=== PATIENT | female | born 1945 | race Caucasian/White ===

== ENCOUNTER → 2018-05-14 | Outpatient (CLI) | payer MEDICARE ==
--- NOTE | 2018-05-14 14:56 | US ---
EXAMINATION TYPE: US kidneys/renal and bladder DATE OF EXAM: 05/14/2018 COMPARISON: 03/06/2014 CLINICAL HISTORY: 72-year-old female R31.9 HEMATURIA,R10.9 FLANK PAIN. Hx of UTI, hx of surgical marjorie stephania of stones x >20 years ago TECHNIQUE: Multiple sonographic images of the kidneys and bladder are obtained. FINDINGS: EXAM MEASUREMENTS: Right Kidney: 10.3 x 4.0 x 4.3 cm Left Kidney: 10.3 x 3.1 x 5.2 cm Right Kidney: Round upper pole lesion partially cystic measuring 2.0 x 1.6 x 1.6 cm . On 03/06/2014 , a upper pole lesion measured 1.3 x 1.1 x 1.0 cm. No hydronephrosis. Left Kidney: No hydronephrosis. Bladder: Underdistention limits its evaluation. Left jet seen IMPRESSION: 1. No hydronephrosis. 2. Indeterminate round, 2 cm lesion in the upper pole of the right kidney could be partially cystic. Complicated or complex cyst are considerations. This has increased in size from 1.3 cm in 2014. The r elative indolent growth suggests a benign etiology but given the growth, additional follow-up is patrick mmended. Kidney MRI can provide more definitive assessment. Otherwise, 3-6 month follow-up ultrasound is recommended.
--- NOTE | 2018-05-14 15:44 | XR ---
EXAMINATION TYPE: XR KUB DATE OF EXAM: 05/14/2018 3:39 PM CLINICAL HISTORY: Right-sided flank pain. TECHNIQUE: Two supine KUB images of the abdomen are obtained. COMPARISON: Same day renal ultrasound. FINDINGS: Scattered gas is seen in non-distended small and large bowel loops . Scattered pelvic phleb oliths are present bilaterally. There is severe narrowing with sclerosis and spurring right L4-L5 lev el. Visualized lung bases are clear. IMPRESSION: Overall nonobstructive bowel gas pattern. No definite nephrolithiasis.
[2018-05-14 16:19] LABS: Amorphous Sediment,Urine Occasional /hpf; Appearance,Urine Cloudy (Clear); Bilirubin,Urine 2+ (Negative); Blood,Urine Trace (Negative); Color,Urine Dark Brown; Glucose,Urine (UA) Negative (Negative); Hyaline Casts,Urine 3 /lpf (0-2); Ketones,Urine Negative (Negative); Leukocyte Esterase,Urine Moderate (Negative); Mucus,Urine Few /hpf; Nitrite,Urine Negative (Negative); Protein,Urine 1+ (Negative); RBC,Urine 4 /hpf (0-5); Specific Gravity,Urine 1.022 (1.001-1.035); Squamous Epithelial Cell,Urine 15 /hpf (0-4); WBC,Urine 17 /hpf (0-5)
[2018-05-14 17:10] LABS: Albumin 3.4 g/dL (3.5-5.0); Potassium 4.3 mmol/L (3.5-5.1); Total Bilirubin 3.1 mg/dL (0.2-1.3); Total Protein 6.5 g/dL (6.3-8.2)
== END | disposition home or self-care (01) ==
LOC: RADUSWWP 13:58
PROVIDERS: ATTEND Internal Medicine
DX: N28.9 Disorder of kidney and ureter, unspecified (principal); R31.9 Hematuria, unspecified; R10.9 Unspecified abdominal pain; Z88.0 Allergy status to penicillin; Z88.1 Allergy status to other antibiotic agents; Z88.2 Allergy status to sulfonamides; Z91.048 Other nonmedicinal substance allergy status
CPT/HCPCS: 36415; 74018; 76770; 80053; 81001

== ENCOUNTER 2018-05-17 13:15 | Observation (INO) | payer MEDICARE ==
[2018-05-17 16:12] LABS: Appearance,Urine Cloudy (Clear); Bacteria,Urine Rare /hpf; Bilirubin,Urine Negative (Negative); Blood,Urine Moderate (Negative); Color,Urine Dark Yellow; Glucose,Urine (UA) Negative (Negative); Ketones,Urine Negative (Negative); Leukocyte Esterase,Urine Large (Negative); Mucus,Urine Rare /hpf; Nitrite,Urine Negative (Negative); PH, Urine 5.5 (5.0-8.0); Protein,Urine 1+ (Negative); RBC,Urine 10 /hpf (0-5); Specific Gravity,Urine 1.024 (1.001-1.035); Squamous Epithelial Cell,Urine 10 /hpf (0-4)
--- NOTE | 2018-05-17 17:23 | ED ---
General Adult HPI <Kory Catalan - Last Filed: 05/17/18 19:24> - General Source: patient Mode of arrival: ambulatory Limitations: no limitations <Sheba Corley - Last Filed: 05/17/18 20:02> - General Chief complaint: Recheck/Abnormal Lab/Rx Stated complaint: fever, sweating Time Seen by Provider: 05/17/18 15:23 - History of Present Illness Initial comments: 72-year-old female with past medical history of hyperlipidemia, hypertension and fiber mild to presenting today for chief complaint of sent by primary provider. Patient states she had elevated liver enzymes and was told by her primary care provider to present for evaluation. Patient does admit to having right upper quadrant abdominal pain, chills and feels as though she has a fever. Upon arrival patient is afebrile. Patient states she's had decreased appetite, denies any severe abdominal pain, diarrhea, constipation, vomiting, hematemesis, melena or hematochezia. Patient denies any chest pain dyspnea disposition. Patient denies any lower extremity edema. Patient states she had laboratory studies performed at her primary care provider Dr. Mace which revealed significant elevation of the liver enzymes as well alk phos and was sent to the ER for admission and further evaluation. Patient denies any recent back pain, numbness or tingling, dysuria, frequency or hesitancy, headaches or visual changes, or any other complaints. Upon arrival pt VS stable she appears nontoxic. (Sheba Corley) - Related Data Home Medications Medication Instructions Recorded Confirmed Cholecalciferol (Vitamin D3) 2,000 unit PO DAILY 05/17/18 05/17/18 [Vitamin D3] Escitalopram [Lexapro] 20 mg PO HS 05/17/18 05/17/18 Gabapentin [Neurontin] 400 mg PO BID 05/17/18 05/17/18 Losartan [Cozaar] 50 mg PO HS 05/17/18 05/17/18 Multivitamins, Thera [Multivitamin 1 tab PO DAILY 05/17/18 05/17/18 (formulary)] Omeprazole Magnesium [PriLOSEC OTC] 20 mg PO HS 05/17/18 05/17/18 Simvastatin [Zocor] 20 mg PO HS 05/17/18 05/17/18 Triamcinolone Acetonide [Nasacort] 1 spray EA NOSTRIL BID PRN 05/17/18 05/17/18 Allergies Allergy/AdvReac Type Severity Reaction Status Date / Time adhesive tape Allergy Rash/Hives Verified 05/17/18 15:29 erythromycin base Allergy Nausea & Verified 05/17/18 15:29 Vomiting & Diarrhea Iodinated Contrast- Oral and Allergy Rash/Hives Verified 05/17/18 15:29 IV Dye Penicillins Allergy Rash/Hives Verified 05/17/18 15:29 Sulfa (Sulfonamide Allergy Rash/Hives Verified 05/17/18 15:29 Antibiotics) ENVIRONMENTAL Allergy Dyspnea Uncoded 05/17/18 15:29 Review of Systems ROS Other: All systems not noted in ROS Statement are negative. <Kory Catalan - Last Filed: 05/17/18 19:24> ROS Other: All systems not noted in ROS Statement are negative. <Sheba Corley - Last Filed: 05/17/18 20:02> ROS Statement: Those systems with pertinent positive or pertinent negative responses have been documented in the HPI. Past Medical History Past Medical History: Fibromyalgia, Hyperlipidemia, Hypertension Additional Past Medical History / Comment(s): seasonal allergies, History of Any Multi-Drug Resistant Organisms: None Reported Past Surgical History: Appendectomy, Back Surgery, Hysterectomy, Tonsillectomy Additional Past Surgical History / Comment(s): parathyroid removed, cataracts Past Psychological History: No Psychological Hx Reported Smoking Status: Never smoker Past Alcohol Use History: None Reported Past Drug Use History: None Reported <Sheba Corley - Last Filed: 05/17/18 20:02> General Exam <Kory Catalan - Last Filed: 05/17/18 19:24> Limitations: no limitations <Sheba Corley - Last Filed: 05/17/18 20:02> - General Exam Comments Initial Comments: General: The patient is awake and alert, in no distress, and does not appear acutely ill. Eye: Pupils are equal, round and reactive to light, extra-ocular movements are intact. No nystagmus. There is normal conjunctiva bilaterally. No signs of icterus. Ears, nose, mouth and throat: There are moist mucous membranes and no oral lesions. Neck: The neck is supple, there is no tenderness or JVD. Cardiovascular: There is a regular rate and rhythm. No murmur, rub or gallop is appreciated. Respiratory: Lungs are clear to auscultation, respirations are non-labored, breath sounds are equal. No wheezes, stridor, rales, or rhonchi. Gastrointestinal: No noted diaphoresis, jaundice, pallor, protecting postures or squirming. Symmetrical pigmentation of abdomen without signs of inflammation. Umbilicus mildline, inverted without swelling. No dilated veins. Abdomen contour obese, no noted abdominal distention. No visible masses. No peristalsis, aortic pulsations, or ventral hernia. Bowel sounds audible in all 4 quadrants, unremarkable. No friction rubs or venous hums. No epigastic, hepatic or abdominal bruits. Mild tenderness to palpation of the RUQ remaining abomen nontender to deep or light palpation. Liver edge, not palpable. Spleen edge, right and left kidney not palpable. Superior bladder margin non-tender. Special Testing: Negative [place], [place], McBurney, Sugar, cutaneous hyperesthesia. Iliopsoas and obturator tests negative bilaterally. Negative Heel Jar test/ tu sign. No CVA tenderness. Digital rectal exam deferred. Negative michaud turners or cullens sign Musculoskeletal: Normal ROM, no tenderness. Strength 5/5. Sensation intact. Pulses equal bilaterally 2+. Neurological: A&O x 3. CN II-XII intact, There are no obvious motor or sensory deficits. Coordination appears grossly intact. Speech is normal. Skin: Skin is warm and dry and no rashes or lesions are noted. No LE edema. Psychiatric: Cooperative, appropriate mood & affect, normal judgment. (Sheba Corley) Vital Signs 05/17/18 05/17/18 05/17/18 13:27 16:30 18:48 Temperature 97.6 F 98.2 F 97.1 F L Pulse Rate 85 74 74 Respiratory 18 18 18 Rate Blood Pressure 102/67 119/58 123/59 O2 Sat by Pulse 95 97 99 Oximetry Medical Decision Making - Lab Data Result diagrams: 05/17/18 17:11 05/17/18 17:00 <Kory Catalan - Last Filed: 05/17/18 19:24> - Lab Data Result diagrams: 05/17/18 17:11 05/17/18 17:00 <Sheba Corley - Last Filed: 05/17/18 20:02> - Medical Decision Making Case discussed with practitioner Barney. Chart reviewed. Case also discussed with Dr. Florian, covering for Dr. Mace who does recommend medical admission to Dr. Singh with GI consult. Case was discussed with practitioner Jyoti, covering for Dr. Singh, who will admit. (Kory Catalan) Laboratory revealed transaminases elevated as well alk phos. Pt US negative for choledocholithiasis or acute cholecystitis. No elevation in white blood cell count. Hepatitis panel pending. Pt sent for admission by primary care provider. Lactic acid WNL. UA revealed not clean catch, culture pending pt denies symptoms. Pt stable, discussed case with attending provider Dr. Catalan who contacted Dr. Mace for admission discussing results of todays visit. Pt admitted for further evaluation of acute hepatitis with GI on consult. Pt agreeable with admission all findings discussed with patient. Pt denied questions at this time. (Shbea Corley) - Lab Data Lab Results 05/17/18 05/17/18 05/17/18 Range/Units 15:55 17:00 17:00 WBC (3.8-10.6) k/uL RBC (3.80-5.40) m/uL Hgb (11.4-16.0) gm/dL Hct (34.0-46.0) % MCV (80.0-100.0) fL MCH (25.0-35.0) pg MCHC (31.0-37.0) g/dL RDW (11.5-15.5) % Plt Count (150-450) k/uL Neutrophils % % Lymphocytes % % Monocytes % % Eosinophils % % Basophils % % Neutrophils # (1.3-7.7) k/uL Lymphocytes # (1.0-4.8) k/uL Monocytes # (0-1.0) k/uL Eosinophils # (0-0.7) k/uL Basophils # (0-0.2) k/uL PT 9.8 (9.0-12.0) sec INR 0.9 (<1.2) APTT 24.5 (22.0-30.0) sec Sodium 133 L (137-145) mmol/L Potassium 4.4 (3.5-5.1) mmol/L Chloride 100 (98-107) mmol/L Carbon Dioxide 25 (22-30) mmol/L Anion Gap 8 mmol/L BUN 26 H (7-17) mg/dL Creatinine 1.07 H (0.52-1.04) mg/dL Est GFR (CKD-EPI)AfAm 60 (>60 ml/min/1.73 sqM) Est GFR (CKD-EPI)NonAf 52 (>60 ml/min/1.73 sqM) Glucose 97 (74-99) mg/dL Plasma Lactic Acid Fantasma (0.7-2.0) mmol/L Calcium 8.8 (8.4-10.2) mg/dL Total Bilirubin 1.4 H (0.2-1.3) mg/dL AST 60 H (14-36) U/L ALT 115 H (9-52) U/L Alkaline Phosphatase 378 H (38-126) U/L Total Protein 6.0 L (6.3-8.2) g/dL Albumin 3.0 L (3.5-5.0) g/dL Amylase 34 (30-110) U/L Lipase 65 (23-300) U/L Urine Color Dark Yellow Urine Appearance Cloudy H (Clear) Urine pH 5.5 (5.0-8.0) Ur Specific [place] 1.024 (1.001-1.035) Urine Protein 1+ H (Negative) Urine Glucose (UA) Negative (Negative) Urine Ketones Negative (Negative) Urine Blood Moderate H (Negative) Urine Nitrite Negative (Negative) Urine Bilirubin Negative (Negative) Urine Urobilinogen 2.0 (<2.0) mg/dL Ur Leukocyte Esterase Large H (Negative) Urine RBC 10 H (0-5) /hpf Urine WBC 9 H (0-5) /hpf Ur Squamous Epith Cells 10 H (0-4) /hpf Urine Bacteria Rare H (None) /hpf Urine Mucus Rare H (None) /hpf Hepatitis A IgM Ab 05/17/18 05/17/18 05/17/18 Range/Units 17:11 17:43 17:44 WBC 7.2 (3.8-10.6) k/uL RBC 3.97 (3.80-5.40) m/uL Hgb 11.3 L (11.4-16.0) gm/dL Hct 36.3 (34.0-46.0) % MCV 91.6 (80.0-100.0) fL MCH 28.6 (25.0-35.0) pg MCHC 31.2 (31.0-37.0) g/dL RDW 14.5 (11.5-15.5) % Plt Count 270 (150-450) k/uL Neutrophils % 83 % Lymphocytes % 7 % Monocytes % 3 % Eosinophils % 6 % Basophils % 0 % Neutrophils # 5.9 (1.3-7.7) k/uL Lymphocytes # 0.5 L (1.0-4.8) k/uL Monocytes # 0.2 (0-1.0) k/uL Eosinophils # 0.4 (0-0.7) k/uL Basophils # 0.0 (0-0.2) k/uL PT (9.0-12.0) sec INR (<1.2) APTT (22.0-30.0) sec Sodium (137-145) mmol/L Potassium (3.5-5.1) mmol/L Chloride (98-107) mmol/L Carbon Dioxide (22-30) mmol/L Anion Gap mmol/L BUN (7-17) mg/dL Creatinine (0.52-1.04) mg/dL Est GFR (CKD-EPI)AfAm (>60 ml/min/1.73 sqM) Est GFR (CKD-EPI)NonAf (>60 ml/min/1.73 sqM) Glucose (74-99) mg/dL Plasma Lactic Acid [place] 1.3 (0.7-2.0) mmol/L Calcium (8.4-10.2) mg/dL Total Bilirubin (0.2-1.3) mg/dL AST (14-36) U/L ALT (9-52) U/L Alkaline Phosphatase (38-126) U/L Total Protein (6.3-8.2) g/dL Albumin (3.5-5.0) g/dL Amylase (30-110) U/L Lipase (23-300) U/L Urine Color Urine Appearance (Clear) Urine pH (5.0-8.0) Ur Specific [place] (1.001-1.035) Urine Protein (Negative) Urine Glucose (UA) (Negative) Urine Ketones (Negative) Urine Blood (Negative) Urine Nitrite (Negative) Urine Bilirubin (Negative) Urine Urobilinogen (<2.0) mg/dL Ur Leukocyte Esterase (Negative) Urine RBC (0-5) /hpf Urine WBC (0-5) /hpf Ur Squamous Epith Cells (0-4) /hpf Urine Bacteria (None) /hpf Urine Mucus (None) /hpf Hepatitis A IgM Ab NEGATIVE Disposition <Kory Catalan - Last Filed: 05/17/18 19:24> Is patient prescribed a controlled substance at d/c from ED?: No Time of Disposition: 19:35 Decision to Admit Reason: Admit from EC Decision Date: 05/17/18 Decision Time: 19:36 <Sheba Corley - Last Filed: 05/17/18 20:02> Clinical Impression: Elevated liver enzymes, Acute hepatitis, RUQ abdominal pain, Blood alkaline phosphatase increased compared with prior measurement Disposition: ADMITTED IP TO THIS HOSP Condition: Stable
[2018-05-17 17:31] LABS: INR 0.9 (<1.2); Partial Thromboplastin Time 24.5 sec (22.0-30.0); Prothrombin Time 9.8 sec (9.0-12.0)
--- NOTE | 2018-05-17 17:37 | US ---
EXAMINATION TYPE: US abdomen limited DATE OF EXAM: 05/17/2018 COMPARISON: Renal US 05/14/2018 CLINICAL HISTORY: Pain. Elevated liver enzymes. Difficult and limited exam due to overlying bowel gas EXAM MEASUREMENTS: Liver Length: 20.8 cm Gallbladder Wall: 0.6 cm CBD: 0.6 cm Right Kidney: 10.2 x 4.5 x 4.9 cm Pancreas: Tail obscured by overlying bowel gas, visualized portions wnl Liver: Heterogeneous, enlarged Gallbladder: Wall appears thickened. Some echogenic debris visualized within possible sludge vs othe r Evidence for sonographic Sotelo's sign: No CBD: wnl as visualized, distal portion obscured by bowel gas Right Kidney: Complex area upper pole measuring 1.8 x 2.1 x 2.0 cm Visualized pancreas shows no worrisome mass or ductal dilatation. Distal body and tail is suboptimall y evaluated as there is gas from overlying bowel loops. Visualized liver is slightly heterogeneous wi thout intrahepatic ductal dilatation. Evaluation for focal masses is suboptimal due to the heterogene ity. No surrounding ascites is seen. Gallbladder shows no shadowing mobile gallstones. Mild gallbladd er wall thickening is present. Cannot exclude gallbladder sludge. Upper pole of the right kidney show s 2.1 cm oval well-defined hypoechoic to anechoic lesion favoring simple cyst. No gross hydronephrosi s is seen. IMPRESSION: Heterogeneous hyperechoic appearance could reflect product of diffuse fatty infiltration or underlying hepatocellular disease. Imaging guided random biopsy for tissue analysis can be perform ed if desired.
[2018-05-17 17:48] LABS: Basophils % (A) 0 %; Eosinophils # (A) 0.4 k/uL (0-0.7); Eosinophils % (A) 6 %; HCT 36.3 % (34.0-46.0); HGB 11.3 gm/dL (11.4-16.0); Lymphocytes # (A) 0.5 k/uL (1.0-4.8); Lymphocytes % (A) 7 %; MCH 28.6 pg (25.0-35.0); MCHC 31.2 g/dL (31.0-37.0); MCV 91.6 fL (80.0-100.0); Mean Platelet Volume 7.1; Monocytes # (A) 0.2 k/uL (0-1.0); Monocytes % (A) 3 %; Neutrophils # (A) 5.9 k/uL (1.3-7.7); Neutrophils % (A) 83 %; Platelet Count 270 k/uL (150-450); RBC 3.97 m/uL (3.80-5.40); RDW 14.5 % (11.5-15.5); WBC 7.2 k/uL (3.8-10.6)
[2018-05-17 17:50] LABS: Calcium 8.8 mg/dL (8.4-10.2); Potassium 4.4 mmol/L (3.5-5.1); Total Bilirubin 1.4 mg/dL (0.2-1.3)
[2018-05-17 19:15] LABS: Hepatitis A AB IgM Index 0.02; Hepatitis A Antibody IgM NEGATIVE
[2018-05-17] MEDS ORDERED: NALOXONE 0.4 MG/ML 1 ML VIAL IV PRN (19:27)
[2018-05-17] MEDS ORDERED: MORPHINE SULFATE 4 MG/ML SYRINGE IV PRN (19:27)
[2018-05-17] MEDS: GABAPENTIN 400 MG CAP PO SCH (22:10)
[2018-05-17] MEDS: PANTOPRAZOLE 40 MG/10 ML VIAL IVP SCH (22:10)
[2018-05-17] MEDS: LOSARTAN 50 MG TAB PO SCH (22:10)
[2018-05-17] MEDS: ESCITALOPRAM 20 MG TAB PO SCH (22:44)
[2018-05-17] MEDS: SODIUM CHLORIDE 0.9% 1,000 ML IV SCH (22:45)
[2018-05-18 01:10] LABS: Hepatitis B Core IgM Non-Reactive (Non-Reactive)
[2018-05-18] MEDS: PANTOPRAZOLE 40 MG/10 ML VIAL IVP SCH ×2 (07:47→20:30)
[2018-05-18] MEDS: GABAPENTIN 400 MG CAP PO SCH ×2 (07:48→20:30)
[2018-05-18] MEDS: SODIUM CHLORIDE 0.9% 1,000 ML IV SCH ×2 (08:30→23:50)
--- NOTE | 2018-05-18 15:35 | P.CONS ---
History of Present Illness - Reason for Consult Consult date: 05/18/18 hepatitis Requesting physician: Nico Mims - Chief Complaint weakness abdominal pain - History of Present Illness 72-year-old female past medical history of fibromyalgia, GERD, hyperlipidemia, hypertension, shingles, nephrolithiasis admitted from Dr. Mace's office with reports of multiple symptoms such as weakness fatigue since [place] pink tinged hematuria last week, light color and loose bowel movements with diffuse right sided upper abdominal discomfort and elevated liver enzymes. She has no history of known liver disorders. No history of alcoholism. She was recently placed on outpatient antibiotics Macrodantin last 2 weeks for suspected urinary tract infection possible kidney infection. Outpatient liver function tests on 05/14/2018 total bilirubin 3.1. AST 255. ALT 262. AP 556. Hepatitis screen nonreactive. C. diff negative. T-max 99.8. Admission LFTs total bilirubin 1.4. AST 60. ALT 115. AP 378. White count 7.2. Hemoglobin 11.3. Platelet 270. INR 0.9. BUN 26. Creatinine 1.0. Liver function tests and 2017 were within normal limits. Ultrasound abdomen/kidney reported no hydronephrosis. Ultrasound of the right upper quadrant reported liver length of 20.8 cm. CBD 0.6 cm. Gallbladder appeared thickened with echogenic debris possible sludge. No shadowing mobile gallstones. Gallbladder sludge could not be excluded. Heterogeneous hyperechoic appearance could reflect diffuse fatty infiltration or underlying hepatocellular disease. Urinalysis cloudy moderate blood large leukocyte esterase culture pending. Review of Systems ReConstitutional: Reports intermittent chills possible fever prior to admission. Denies weight gain, or loss. HEENT: Negative for migraines, blurred vision or loss, earaches, drainage, tinnitus, oral mucosal lesions, dysphagia, or odynophagia. CARDIAC: Negative for chest pain, arrhythmias, or palpitation. RESPIRATORY: Negative for shortness of breath, hemoptysis, cough, or sputum production. GI: See HPI for pertinent findings. : Reports hematuria one week ago denies, urgency, frequency, polyuria, or dysuria. GYNc: Negative vaginal discharge. MUSCULOSKELETAL: Negative for muscle aches, swelling, arthritis, and arthralgias. NEUROLOGIC: Negative for stroke or TIA. ENDOCRINE: Negative for thyroid problems. SKIN: Negative for rash or itching. PSYCHIATRIC: Negative history for depression and anxietyale Past Medical History Past Medical History: Fibromyalgia, GERD/Reflux, Hyperlipidemia, Hypertension Additional Past Medical History / Comment(s): seasonal allergies, past kidney stones, vit d deficiency, anx, had a tdap 2013 History of Any Multi-Drug Resistant Organisms: None Reported Past Surgical History: Appendectomy, Back Surgery, Hysterectomy, Tonsillectomy Additional Past Surgical History / Comment(s): parathyroid removed, rt eye cataract removed-has lens implant. partial hysterectomy,surgury to remove kidney stone -both sides., dental implant lower rt side. Past Anesthesia/Blood Transfusion Reactions: Motion Sickness, Postoperative Nausea & Vomiting (PONV) Additional Past Anesthesia/Blood Transfusion Reaction / Comm: pt stated she has never received any blood transfusions. clausterphobia Smoking Status: Never smoker - Past Family History Mother Additional Family Medical History / Comment(s): had tb as child/ lived into her 90's Father Family Medical History: Cancer Additional Family Medical History / Comment(s): lymphoma, cardiac valve replacement Medications and Allergies Home Medications Medication Instructions Recorded Confirmed Type Cholecalciferol (Vitamin D3) 2,000 unit PO DAILY 05/17/18 05/17/18 History [Vitamin D3] Escitalopram [Lexapro] 20 mg PO HS 05/17/18 05/17/18 History Gabapentin [Neurontin] 400 mg PO BID 05/17/18 05/17/18 History Losartan [Cozaar] 50 mg PO HS 05/17/18 05/17/18 History Multivitamins, Thera [Multivitamin 1 tab PO DAILY 05/17/18 05/17/18 History (formulary)] Omeprazole Magnesium [PriLOSEC OTC] 20 mg PO HS 05/17/18 05/17/18 History Simvastatin [Zocor] 20 mg PO HS 05/17/18 05/17/18 History Triamcinolone Acetonide [Nasacort] 1 spray EA NOSTRIL BID PRN 05/17/18 05/17/18 History Allergies Allergy/AdvReac Type Severity Reaction Status Date / Time adhesive tape Allergy Rash/Hives Verified 05/17/18 15:29 erythromycin base Allergy Nausea & Verified 05/17/18 15:29 Vomiting & Diarrhea Iodinated Contrast- Oral and Allergy Rash/Hives Verified 05/17/18 15:29 IV Dye Penicillins Allergy Rash/Hives Verified 05/17/18 15:29 Sulfa (Sulfonamide Allergy Rash/Hives Verified 05/17/18 15:29 Antibiotics) ENVIRONMENTAL Allergy Dyspnea Uncoded 05/17/18 15:29 Physical Exam Vitals: Vital Signs Temp Pulse Pulse Resp BP BP Pulse Ox 05/18/18 12:00 98 16 05/18/18 07:53 98 16 05/18/18 07:47 98.5 F 98 16 114/69 05/18/18 04:00 74 16 05/18/18 00:00 77 16 05/17/18 23:41 99.8 F H 77 16 107/61 95 05/17/18 20:45 98.6 F 79 16 127/69 98 05/17/18 20:40 77 16 05/17/18 20:00 88 18 118/52 98 05/17/18 18:48 97.1 F L 74 18 123/59 99 05/17/18 16:30 98.2 F 74 18 119/58 97 Intake and Output 05/18/18 05/18/18 05/18/18 06:59 14:59 22:59 Intake Total 1005 Balance 1005 Intake: Intake, IV Titration 525 Amount Sodium Chloride 0.9% 1, 525 000 ml @ 75 mls/hr IV . [id number] [facility] Rx#:[id number] Oral 480 Other: Voiding Method Toilet Toilet # Voids 3 4 General appearance: The patient is alert, oriented, in no acute distress. HET: Head is normocephalic and atraumatic. Pupils are equal and reactive. Oropharynx is clear without lesions. Neck: Supple without lymphadenopathy. Trachea midline. Heart: S1 S2. Regular rate and rhythm. Lungs: No crackles or wheezes are heard. Abdomen: Soft, mild tenderness to the right upper quadrant right-sided abdomen, nondistended with bowel sounds. No peritoneal signs. No palpable organomegaly or masses. Extremities: Normal skin color and turgor. No cyanosis, rash, ulceration, clubbing, or edema. Radial and pedal pulses are 2/4 bilaterally. Neurological: No focal deficits. Strength and sensation are grossly intact. Results CBC & Chem 7: 05/17/18 17:11 05/17/18 17:00 Labs: Abnormal Lab Results - Last 24 Hours (Table) 05/17/18 05/17/1805/17/19 Range/Units 15:55 17:00 17:11 Hgb 11.3 L (11.4-16.0) gm/dL Lymphocytes # 0.5 L (1.0-4.8) k/uL Sodium 133 L (137-145) mmol/L BUN 26 H (7-17) mg/dL Creatinine 1.07 H (0.52-1.04) mg/dL Total Bilirubin 1.4 H (0.2-1.3) mg/dL AST 60 H (14-36) U/L ALT 115 H (9-52) U/L Alkaline Phosphatase 378 H (38-126) U/L Total Protein 6.0 L (6.3-8.2) g/dL Albumin 3.0 L (3.5-5.0) g/dL Urine Appearance Cloudy H (Clear) Urine Protein 1+ H (Negative) Urine Blood Moderate H (Negative) Ur Leukocyte Esterase Large H (Negative) Urine RBC 10 H (0-5) /hpf Urine WBC 9 H (0-5) /hpf Ur Squamous Epith Cells 10 H (0-4) /hpf Urine Bacteria Rare H (None) /hpf Urine Mucus Rare H (None) /hpf Microbiology - Last 24 Hours (Table) 05/17/18 15:55 Urine Culture - Preliminary Urine,Voided US - abdomen: report reviewed (Dr. Oscar) Assessment and Plan (1) Acute hepatitis Narrative/Plan: 72-year-old female admitted with several week history of intermittent weakness malaise right-sided abdominal pain discomfort with recent hematuria and elevated liver enzymes in the outpatient setting consistent with acute transaminitis. Transaminases improving abdominal pain still present but improved. Etiology of transaminitis is unclear possible cholangitis possible passage of choledocholithiasis possible underlying transaminitis secondary to UTI. Ultrasound of the abdomen reported possible gallbladder sludge no obvious gallstones with mild gallbladder wall thickening. Additionally patient was receiving outpatient antibiotic therapy over the last few weeks for suspected urinary tract infection possible kidney infection. Urinalysis cloudy moderate blood and large leukocyte esterase urine culture pending. Current Visit: Yes Status: Acute Code(s): B17.9 - ACUTE VIRAL HEPATITIS, UNSPECIFIED SNOMED Code(s): 11087725 (2) RUQ abdominal pain Current Visit: Yes Status: Acute Code(s): R10.11 - RIGHT UPPER QUADRANT PAIN SNOMED Code(s): 104748023 Plan: 1. Recommend CT scan abdomen and pelvis without contrast secondary to ALLERGY. CMP CBC in a.m. Further recommendations after review of CT and morning chemistries. Continue with IV hydration GI prophylaxis. Light diet as tolerated. IV antibiotics. MRCP was discussed of LFTs should worsen however patient states she is claustrophobic. Thank you for this kind referral and the opportunity to participate in the care of your patient. This consultation was discussed with Dr. Oscar. The impression and plan of care have been directed as dictated.
--- NOTE | 2018-05-18 16:01 | CT ---
EXAMINATION TYPE: CT abdomen pelvis wo con DATE OF EXAM: 05/18/2018 COMPARISON: None HISTORY: Abnormal labs per patient. CT DLP: 672.3 mGycm Examination of the solid and hollow viscera is limited given the lack of contrast. FINDINGS: LUNG BASES: Small pleural effusions are noted with compressive atelectasis. Small sliding-type hiatal hernia. Small pericardial effusion noted. LIVER/GB: The gallbladder is unremarkable. No space-occupying hepatic lesion. PANCREAS: No pancreatic mass identified. Adjacent to the uncinate portion of the pancreas and extendi ng caudally is inflammatory change which could be related to pancreatitis. Correlate with amylase and lipase. The remainder of the pancreas is unremarkable. Inflammatory process of other etiology not ex cluded. SPLEEN: No evidence for splenomegaly. No intrasplenic lesions seen. ADRENALS: No adrenal nodules identified. No evidence for thickening. KIDNEYS: No evidence for renal mass. No nephrolithiasis. No hydronephrosis. BOWEL: There is nonvisualization of the appendix. Scattered colonic diverticula without diverticulosi s. No evidence of bowel obstruction. No inflammatory process. Lymph nodes: No evidence for adenopathy greater than 1 cm. Abdominal aorta: Atheromatous changes seen. No evidence for aneurysm. Genital organs: No significant abnormality. Other: No significant abnormality. IMPRESSION: 1.Adjacent to the uncinate portion of the pancreas and extending caudally is inflammatory change whic h could be related to pancreatitis. Correlate with amylase and lipase. Inflammatory process of other etiology not excluded. 2.Small pleural effusions are noted with compressive atelectasis. Small sliding-type hiatal hernia. S mall pericardial effusion noted.
--- NOTE | 2018-05-18 16:15 | P.HPIM ---
History of Present Illness H&P Date: 05/18/18 Chief Complaint: Elevated liver enzymes Patient is a 72-year-old female with a known history of fibromyalgia, hypertension, hyperlipidemia, GERD and recently was in antibiotic for the past 2 weeks in the form of Macrobid for urinary tract infection. Patient was seen by her primary care physician due to blood-tinged urine is being treated for urinary tract c infection. Patient followed with her primary care physician and was found have elevated liver enzymes. Patient was also complaining of right upper quadrant abdominal pain along with hot flashes sometimes. Patient does not have any fever on admission. Patient otherwise denied any complaints of abdominal pain. No dysuria or hematuria currently. Denied any increase the frequency of urination. No constipation or diarrhea. No hematemesis or melena. Patient did have 2-3 loose bowel movements yesterday, currently denied any diarrhea. Denied any chest pain or shortness of breath or leg swelling. Patient states she had laboratory studies performed at her primary care provider Dr. Mace which revealed significant elevation of the liver enzymes as well alk phos and was sent to the ER for admission and further evaluation. Bilirubin 1.4, AST LT and alk phos elevated. Hepatitis panel is negative. Ultrasound of the abdomen showed heterogenous hyperechoic appearance could reflect product of diffuse fatty infiltration or underlying hepatocellular disease. Gallbladder wall appears thickened. Some echogenic debris is visualized within possible sludge versus other. CBD within normal limits. Review of Systems Constitutional: Patient denies any fever or chills . No generalized weakness or weight loss. Abdomen: Patient denied nausea vomiting and diarrhea. Right upper quadrant abdominal pain. Cardiovascular: Patient denies any chest pain or short of breath no palpitations. Respiratory: patient denied any cough is from production. No shortness of breath Neurologic: Patient denied any numbness or tingling headache. Musculoskeletal: Patient denies any complaints of joint swelling or deformity. Skin: yellow discoloration Psychiatric: Negative Endocrine: No heat or cold intolerance. No recent weight gain. Genitourinary: No dysuria or hematuria. All other 14 point ROS negative except the above Past Medical History Past Medical History: Fibromyalgia, GERD/Reflux, Hyperlipidemia, Hypertension Additional Past Medical History / Comment(s): seasonal allergies, past kidney stones, vit d deficiency, anx, had a tdap 2013 History of Any Multi-Drug Resistant Organisms: None Reported Past Surgical History: Appendectomy, Back Surgery, Hysterectomy, Tonsillectomy Additional Past Surgical History / Comment(s): parathyroid removed, rt eye cataract removed-has lens implant. partial hysterectomy,surgury to remove kidney stone -both sides., dental implant lower rt side. Past Anesthesia/Blood Transfusion Reactions: Motion Sickness, Postoperative Nausea & Vomiting (PONV) Additional Past Anesthesia/Blood Transfusion Reaction / Comment(s): pt stated she has never received any blood transfusions. clausterphobia Smoking Status: Never smoker - Past Family History Mother Additional Family Medical History / Comment(s): had tb as child/ lived into her 90's Father Family Medical History: Cancer Additional Family Medical History / Comment(s): lymphoma, cardiac valve replacement Medications and Allergies Home Medications Medication Instructions Recorded Confirmed Type Cholecalciferol (Vitamin D3) 2,000 unit PO DAILY 05/17/18 05/17/18 History [Vitamin D3] Escitalopram [Lexapro] 20 mg PO HS 05/17/18 05/17/18 History Gabapentin [Neurontin] 400 mg PO BID 05/17/18 05/17/18 History Losartan [Cozaar] 50 mg PO HS 05/17/18 05/17/18 History Multivitamins, Thera [Multivitamin 1 tab PO DAILY 05/17/18 05/17/18 History (formulary)] Omeprazole Magnesium [PriLOSEC OTC] 20 mg PO HS 05/17/18 05/17/18 History Simvastatin [Zocor] 20 mg PO HS 05/17/18 05/17/18 History Triamcinolone Acetonide [Nasacort] 1 spray EA NOSTRIL BID PRN 05/17/18 05/17/18 History Allergies Allergy/AdvReac Type Severity Reaction Status Date / Time adhesive tape Allergy Rash/Hives Verified 05/17/18 15:29 erythromycin base Allergy Nausea & Verified 05/17/18 15:29 Vomiting & Diarrhea Iodinated Contrast- Oral and Allergy Rash/Hives Verified 05/17/18 15:29 IV Dye Penicillins Allergy Rash/Hives Verified 05/17/18 15:29 Sulfa (Sulfonamide Allergy Rash/Hives Verified 05/17/18 15:29 Antibiotics) ENVIRONMENTAL Allergy Dyspnea Uncoded 05/17/18 15:29 Physical Exam Vitals: Vital Signs Temp Pulse Pulse Resp BP BP Pulse Ox 05/18/18 12:00 98 16 05/18/18 07:53 98 16 05/18/18 07:47 98.5 F 98 16 114/69 05/18/18 04:00 74 16 05/18/18 00:00 77 16 05/17/18 23:41 99.8 F H 77 16 107/61 95 05/17/18 20:45 98.6 F 79 16 127/69 98 05/17/18 20:40 77 16 05/17/18 20:00 88 18 118/52 98 05/17/18 18:48 97.1 F L 74 18 123/59 99 05/17/18 16:30 98.2 F 74 18 119/58 97 Intake and Output 05/18/18 05/18/18 05/18/18 06:59 14:59 22:59 Intake Total 1005 Balance 1005 Intake: Intake, IV Titration 525 Amount Sodium Chloride 0.9% 1, 525 000 ml @ 75 mls/hr IV . [id number] HAMLET Rx#:[id number] Oral 480 Other: Voiding Method Toilet Toilet # Voids 3 4 PHYSICAL EXAMINATION: Patient is lying in the bed comfortably, no acute distress, awake alert and oriented.. HEENT: Normocephalic. Neck is supple. Pupils reactive. Nostrils clear. Oral cavity is moist. Ears reveal no drainage. Neck reveals no JVD, carotid bruits, or thyromegaly. CHEST EXAMINATION: Trachea is central. Symmetrical expansion. Lung bangura clear to auscultation and percussion. CARDIAC: Normal S1, S2 with no gallops. No murmurs ABDOMEN: Soft. Bowel sounds normal. No organomegaly. No abdominal bruits. Extremities: reveal no edema. No clubbing or cyanosis Neurologically awake, alert, oriented x3 with well-coordinated movements. No focal deficits noted Skin: No rash or skin lesions. Psychiatric: Coperative. Nonsuicidal Musculoskeletal: No joint swelling or deformity. Normal range of motion. Results CBC & Chem 7: 05/17/18 17:11 05/17/18 17:00 Labs: Abnormal Lab Results - Last 24 Hours (Table) 05/17/18 05/17/18 05/17/18 Range/Units 15:55 17:00 17:11 Hgb 11.3 L (11.4-16.0) gm/dL Lymphocytes # 0.5 L (1.0-4.8) k/uL Sodium 133 L (137-145) mmol/L BUN 26 H (7-17) mg/dL Creatinine 1.07 H (0.52-1.04) mg/dL Total Bilirubin 1.4 H (0.2-1.3) mg/dL AST 60 H (14-36) U/L ALT 115 H (9-52) U/L Alkaline Phosphatase 378 H (38-126) U/L Total Protein 6.0 L (6.3-8.2) g/dL Albumin 3.0 L (3.5-5.0) g/dL Urine Appearance Cloudy H (Clear) Urine Protein 1+ H (Negative) Urine Blood Moderate H (Negative) Ur Leukocyte Esterase Large H (Negative) Urine RBC 10 H (0-5) /hpf Urine WBC 9 H (0-5) /hpf Ur Squamous Epith Cells 10 H (0-4) /hpf Urine Bacteria Rare H (None) /hpf Urine Mucus Rare H (None) /hpf Microbiology - Last 24 Hours (Table) 05/17/18 15:55 Urine Culture - Preliminary Urine,Voided Thrombosis Risk Factor Assmnt - DVT/VTE Prophylaxis DVT/VTE Prophylaxis: Pharmacologic Prophylaxis ordered - Choose All That Apply Any of the Below Risk Factors Present?: Yes Each Factor Represents 1 point: Obesity (BMI >25) Other Risk Factors: Yes Each Risk Factor Represents 2 Points: Age 61-74 years Thrombosis Risk Factor Assessment Total Risk Factor Score: 3 Thrombosis Risk Factor Assessment Level: Moderate Risk Assessment and Plan Assessment: Acute transaminitis. Possible passage of choledocholithiasis versus cholangitis Right upper quadrant pain Acute urinary tract infection. Recently treated for Macrobid. Microscopic Hematuria Fibromyalgia GERD Hypertension Hyperlipidemia History of parathyroidectomy History of nephrolithiasis Plan: Patient will be continued on IV antibiotics in the form of ceftriaxone and follow-up urine culture report. Ultrasound of the abdomen showed possible gallbladder sludge. We will monitor liver enzymes. CT of the abdomen pelvis was ordered. Appreciate GI recommendations. MRCP if the liver enzymes gets worse. Follow up urine culture report. Further recommendations based on the clinical course. Time with Patient: Greater than 30
[2018-05-18] MEDS: ESCITALOPRAM 20 MG TAB PO SCH (20:30)
[2018-05-18] MEDS: LOSARTAN 50 MG TAB PO SCH (20:30)
[2018-05-18 23:28] VITALS: RESP 18
[2018-05-19 07:29] VITALS: BP 138/75; PULSE 79; TEMP 98.2
[2018-05-19] MEDS: GABAPENTIN 400 MG CAP PO SCH (08:09)
[2018-05-19] MEDS: PANTOPRAZOLE 40 MG/10 ML VIAL IVP SCH (08:11)
[2018-05-19] MEDS: SODIUM CHLORIDE 0.9% 1,000 ML IV SCH (08:11)
[2018-05-19 12:18] LABS: Albumin 2.7 g/dL (3.5-5.0); Calcium 8.7 mg/dL (8.4-10.2); Potassium 5.2 mmol/L (3.5-5.1); Total Bilirubin 0.8 mg/dL (0.2-1.3); Total Protein 5.5 g/dL (6.3-8.2)
--- NOTE | 2018-05-19 14:25 | P.PN ---
Subjective Progress Note Date: 05/19/18 Principal diagnosis: Elevated liver enzymes abdominal pain Denies abdominal pain. LFTs improving. Total bilirubin normalized. Afebrile. Urine culture showed no growth. Computed tomography scan abdomen and pelvis reported inflammatory changes around the uncinate process possible pancreatitis. Objective - Vital Signs Vital signs: Vital Signs Temp 98.2 F 05/19/18 07:00 Pulse 79 05/19/18 12:00 Resp 18 05/19/18 12:00 BP 138/75 05/19/18 07:00 Pulse Ox 96 05/19/18 07:00 Intake & Output 05/18/18 05/19/18 05/19/18 18:59 06:59 18:59 Intake Total 976 Balance 976 Intake: Oral 476 Other 500 Other: Voiding Method Toilet Toilet Toilet # Voids 4 1 - Exam General appearance: The patient is alert, oriented, in no acute distress. HET: Head is normocephalic and atraumatic. Pupils are equal and reactive. Oropharynx is clear without lesions. Neck: Supple without lymphadenopathy. Trachea midline. Heart: S1 S2. Regular rate and rhythm. Lungs: No crackles or wheezes are heard. Abdomen: Soft, nontender, nondistended with bowel sounds. No peritoneal signs. No palpable organomegaly or masses. Extremities: Normal skin color and turgor. No cyanosis, rash, ulceration, clubbing, or edema. Radial and pedal pulses are 2/4 bilaterally. Neurological: No focal deficits. Strength and sensation are grossly intact. - Labs CBC & Chem 7: 05/17/18 17:11 05/19/18 11:22 Labs: Abnormal Lab Results - Last 24 Hours (Table) 05/19/18 Range/Units 11:22 Potassium 5.2 H (3.5-5.1) mmol/L AST 40 H (14-36) U/L ALT 70 H (9-52) U/L Alkaline Phosphatase 273 H (38-126) U/L Total Protein 5.5 L (6.3-8.2) g/dL Albumin 2.7 L (3.5-5.0) g/dL Microbiology - Last 24 Hours (Table) 05/17/18 15:55 Urine Culture - Final Urine,Voided 05/17/18 17:00 Blood Culture - Preliminary Blood No Growth after 24 hours Assessment and Plan (1) Acute hepatitis Narrative/Plan: 72-year-old female admitted with several week history of intermittent weakness malaise right-sided abdominal pain discomfort with recent hematuria and elevated liver enzymes in the outpatient setting consistent with acute transaminitis. Transaminases abdominal pain improved. Etiology of transaminitis is unclear possible cholangitis possible passage of choledocholithiasis possible underlying transaminitis secondary to UTI. Computed tomography scan abdomen and pelvis reported inflammatory changes around the uncinate process of the pancreas possible pancreatitis however pancreatic enzymes within normal limits. Patient may have had a subacute pancreatitis in the outpatient setting prior to arrival to the hospital. Ultrasound of the abdomen reported possible gallbladder sludge no obvious gallstones with mild gallbladder wall thickening. Additionally patient was receiving outpatient antibiotic therapy over the last few weeks for suspected urinary tract infection possible kidney infection. Urinalysis cloudy moderate blood and large leukocyte esterase urine culture reported no growth. Current Visit: Yes Status: Acute Code(s): B17.9 - ACUTE VIRAL HEPATITIS, UNSPECIFIED SNOMED Code(s): 30616433 (2) RUQ abdominal pain Current Visit: Yes Status: Acute Code(s): R10.11 - RIGHT UPPER QUADRANT PAIN SNOMED Code(s): 824992990 Plan: 1. Light diet as tolerated. Considering LFTs have significantly improved bilirubin has normalized no further workup at this time. Patient was advised to follow up in the [place] office in 2-3 weeks for reevaluation with a repeat CMP in 3-5 days. She was also advised to follow with Dr. Mace service in 3-5 days. If patient should have increased abdominal pain or worsening LFTs recommend MRCP; however patient is claustrophobic open MRI preferred. Patient also benefit in the outpatient setting a surgical evaluation if abdominal pain worsens. Assessment and plan a care discussed with Dr. Oscar
--- NOTE | 2018-05-21 10:34 | P.DS ---
Providers Date of admission: 05/17/18 19:26 Expected date of discharge: 05/19/18 Attending physician: Jovita Schroeder Primary care physician: Ashli Mace [facility] Course: Acute transaminitis. Possible passage of choledocholithiasis versus cholangitis. Etiology unclear. Improving now. Right upper quadrant pain. Resolved Acute urinary tract infection. Recently treated for Macrobid. Urine culture showed no growth. Microscopic Hematuria Fibromyalgia GERD Hypertension Hyperlipidemia History of parathyroidectomy History of nephrolithiasis Hospital course Patient is a 72-year-old female with a known history of fibromyalgia, hypertension, hyperlipidemia, GERD and recently was in antibiotic for the past 2 weeks in the form of Macrobid for urinary tract infection. Patient was seen by her primary care physician due to blood-tinged urine is being treated for urinary tract c infection. Patient followed with her primary care physician and was found have elevated liver enzymes. Patient was also complaining of right upper quadrant abdominal pain along with hot flashes sometimes. Patient does not have any fever on admission. Patient otherwise denied any complaints of abdominal pain. No dysuria or hematuria currently. Denied any increase the frequency of urination. No constipation or diarrhea. No hematemesis or melena. Patient did have 2-3 loose bowel movements yesterday, currently denied any diarrhea. Denied any chest pain or shortness of breath or leg swelling. Patient states she had laboratory studies performed at her primary care provider Dr. Mace which revealed significant elevation of the liver enzymes as well alk phos and was sent to the ER for admission and further evaluation. Bilirubin 1.4, AST LT and alk phos elevated. Hepatitis panel is negative. Ultrasound of the abdomen showed heterogenous hyperechoic appearance could reflect product of diffuse fatty infiltration or underlying hepatocellular disease. Gallbladder wall appears thickened. Some echogenic debris is visualized within possible sludge versus other. CBD within normal limits. 05/19/2018 Patient denied any complains of chest pain or shortness of breath. Does have mild right upper quadrant discomfort but improved compared to yesterday. AST, ALT, alk phos is trending down. Bilirubin level came down to 1.4-0.8 today. Patient was seen by gastroenterology and recommended no further workup at this time. CT of the abdominal and pelvis showed a distant to the clinic 8 portion of the pancreas and extending Cardelli is intermittently change which could be related to pancreatitis. Correlate with amylase and lipase. Intermittently process of other etiologies not excluded. Small pleural effusions are noted with compressive atelectasis. Small sliding type her hiatal hernia. Small pericardial effusion noted. Hepatitis panel negative. C. diff negative. Amylase and lipase is not elevated. Patient was recommended to follow with Dr. Dexter in the clinic for repeat BMP and liver enzymes. Patient is otherwise stable to be discharged home and follow -up as an outpatient. We will continue to hold simvastatin until levels are normalized. PHYSICAL EXAMINATION: Patient is lying in the bed comfortably, no acute distress, awake alert and oriented.. HEENT: Normocephalic. Neck is supple. Pupils reactive. Nostrils clear. Oral cavity is moist. Ears reveal no drainage. Neck reveals no JVD, carotid bruits, or thyromegaly. CHEST EXAMINATION: Trachea is central. Symmetrical expansion. Lung bangura clear to auscultation and percussion. CARDIAC: Normal S1, S2 with no gallops. No murmurs ABDOMEN: Soft. Bowel sounds normal. No organomegaly. No abdominal bruits. Extremities: reveal no edema. No clubbing or cyanosis Neurologically awake, alert, oriented x3 with well-coordinated movements. No focal deficits noted Skin: No rash or skin lesions. Psychiatric: Coperative. Nonsuicidal Musculoskeletal: No joint swelling or deformity. Normal range of motion. Vital Signs (72 hours) 05/18/18 05/18/18 05/18/18 12:00 15:36 16:00 Temperature 98.3 F Pulse Rate [ 98 74 74 Pulse Oximetery ] Respiratory 16 16 16 Rate Blood Pressure 121/73 [Left Arm] Blood Pressure [Right Arm] O2 Sat by Pulse Oximetry 05/18/18 05/18/18 05/18/18 20:00 20:15 23:26 Temperature 99.1 F Pulse Rate [ 72 72 73 Pulse Oximetery ] Respiratory 16 18 Rate Blood Pressure 120/72 114/60 [Left Arm] Blood Pressure [Right Arm] O2 Sat by Pulse 93 L Oximetry 05/19/18 05/19/18 05/19/18 00:00 04:00 05:10 Temperature 97.8 F Pulse Rate [ 73 73 Pulse Oximetery ] Respiratory 18 18 Rate Blood Pressure [Left Arm] Blood Pressure [Right Arm] O2 Sat by Pulse Oximetry 05/19/18 05/19/18 05/19/18 07:00 08:00 12:00 Temperature 98.2 F Pulse Rate [ 79 79 79 Pulse Oximetery ] Respiratory 18 18 18 Rate Blood Pressure [Left Arm] Blood Pressure 138/75 [Right Arm] O2 Sat by Pulse 96 Oximetry Patient Condition at Discharge: Stable Plan - Discharge Summary Discharge Rx Participant: No New Discharge Prescriptions: Continue Multivitamins, Thera [Multivitamin (formulary)] 1 tab PO DAILY Cholecalciferol (Vitamin D3) [Vitamin D3] 2,000 unit PO DAILY Triamcinolone Acetonide [Nasacort] 1 spray EA NOSTRIL BID PRN PRN Reason: Allergy Symptoms Omeprazole Magnesium [PriLOSEC OTC] 20 mg PO HS Gabapentin [Neurontin] 400 mg PO BID Escitalopram [Lexapro] 20 mg PO HS Losartan [Cozaar] 50 mg PO HS Discontinued Simvastatin [Zocor] 20 mg PO HS Discharge Medication List Cholecalciferol (Vitamin D3) [Vitamin D3] 2,000 unit PO DAILY 05/17/18 [History] Escitalopram [Lexapro] 20 mg PO HS 05/17/18 [History] Gabapentin [Neurontin] 400 mg PO BID 05/17/18 [History] Losartan [Cozaar] 50 mg PO HS 05/17/18 [History] Multivitamins, Thera [Multivitamin (formulary)] 1 tab PO DAILY 05/17/18 [History ] Omeprazole Magnesium [PriLOSEC OTC] 20 mg PO HS 05/17/18 [History] Triamcinolone Acetonide [Nasacort] 1 spray EA NOSTRIL BID PRN 05/17/18 [History] Follow up Appointment(s)/Referral(s): Ashli Mace MD [Primary Care Provider] - 1-2 days Isabelle Loyd MD [STAFF PHYSICIAN] - 06/10/18 10:45 am ([place] office) Ambulatory/Diagnostic Orders: Comprehensive Metabolic Panel [LAB.AMB] Time Frame: 3 Days, Location: None Selected Discharge Disposition: HOME SELF-CARE
== END 2018-05-19 16:05 | disposition home or self-care (01) ==
LOC: EC 13:15 → 1SOBS 19:26
PROVIDERS: ADMIT Internal Medicine; ATTEND Internal Medicine
DX: R74.0 Nonspecific elevation of levels of transaminase and lactic acid dehydrogenase [LDH] (principal); N39.0 Urinary tract infection, site not specified; R31.0 Gross hematuria; M79.7 Fibromyalgia; K21.9 Gastro-esophageal reflux disease without esophagitis; I10 Essential (primary) hypertension; E78.5 Hyperlipidemia, unspecified; Z87.442 Personal history of urinary calculi; R74.8 Abnormal levels of other serum enzymes; R10.11 Right upper quadrant pain; N95.1 Menopausal and female climacteric states; J30.2 Other seasonal allergic rhinitis; E55.9 Vitamin D deficiency, unspecified; F41.9 Anxiety disorder, unspecified; E89.0 Postprocedural hypothyroidism; Z79.899 Other long term (current) drug therapy; Z88.1 Allergy status to other antibiotic agents; Z91.041 Radiographic dye allergy status; Z88.0 Allergy status to penicillin; Z88.2 Allergy status to sulfonamides; Z91.048 Other nonmedicinal substance allergy status; E66.9 Obesity, unspecified; Z68.33 Body mass index [BMI] 33.0-33.9, adult; Z86.19 Personal history of other infectious and parasitic diseases; Z80.7 Family history of other malignant neoplasms of lymphoid, hematopoietic and related tissues; Z82.49 Family history of ischemic heart disease and other diseases of the circulatory system
CPT/HCPCS: 96361; 96365; 96376 ×2; 96375; 99284; 36415; 80053 ×2; 80074; 84443; 82150; 83605; 83690; 85025; 85610; 85730; 81001; 87040; 87324; 87086; 76705; 74176; G0378 ×3; J0696; C9113 ×3

== ENCOUNTER → 2018-06-28 | Outpatient (CLI) | payer MEDICARE ==
[2018-06-28 18:44] LABS: ALT 23 U/L (8-44); AST 30 U/L (13-35); Albumin/Globulin Ratio 1.64 (1.60-3.17); Alkaline Phosphatase 118 U/L (41-126); Bilirubin, Conjugated <0.20 mg/dL (0.20-0.40); Globulin 2.5 g/dL (1.6-3.3); Total Bilirubin 0.4 mg/dL (0.2-1.2); Total Protein 6.6 g/dL (6.2-8.2)
== END | disposition home or self-care (01) ==
LOC: LABWHC1 13:38
PROVIDERS: ATTEND Internal Medicine
DX: K75.89 Other specified inflammatory liver diseases (principal)
CPT/HCPCS: 36415; 80076

== ENCOUNTER → 2018-11-26 | Outpatient (CLI) | payer MEDICARE ==
--- NOTE | 2018-11-26 15:56 | BD ---
EXAMINATION TYPE: Axial Bone Density DATE OF EXAM: 11/26/2018 COMPARISON: 2016 CLINICAL HISTORY: N 95.3, M 89.9 Height: 5 FT 5 IN Weight: 182 FRAX RISK QUESTIONS: Secondary Osteoporosis: 5. Chronic liver disease: HEPATITIS FROM CHOLESTEROL MEDS 2019 RISK FACTORS HISTORY OF: Surgery to Spine/Hip(right/left)/Wrist (right/left): SPINE When: 1979 Family History of Osteoporosis: YES Active: YES Postmenopausal woman: PART HYST AGE 37 Take estrogen and/or progesterone medications: TOOK FOR A SHORT TIME YEARS AGO Lost more than 2 inches in height since high school: YES MEDICATIONS: Additional Medications: COZAAR, GABAPENTIN, PRILOSEC, LEXAPRO, NASOCORT, VIT D, ALLERGY SHOTS, Additional History: EXAM MEASUREMENTS: Bone mineral density about the R hip (g/cm2): 0.777 Bone mineral density about the L hip (g/cm2): 0.792 T Score values are as follows: -----R Neck: -1.9 -----L Neck: -1.8 -----R Total: -2.1 -----L Total: -1.9 Bone mineral density has: DECREASED -1.9 % since study of: 2016 Bone mineral density about the L Wrist (g/cm2): 0.554 T Score values are as follows: -----Dist. R+U: -2.4 -----Prox. R+U: -0.7 -----Radius total: -2.0 FIRST TIME FOREARM HAS BEEN DONE IMPRESSION: Osteopenia (T Score between -2.5 and -1). There is slightly increased risk of fracture and the patient may be considered for treatment. Re-Screen 2-5 years. NOTE: T-SCORE=SD OF THE YOUNG ADULT MEAN.
--- NOTE | 2018-11-30 09:21 | MM ---
Reason for exam: screening (asymptomatic). Last mammogram was performed 2 years and 9 months ago. History: Patient is postmenopausal and is nulliparous. Took estrogen for 22 years 1 month beginning at age 41. Physical Findings: A clinical breast exam by your physician is recommended on an annual basis and results should be correlated with mammographic findings. MG 3D Screening Mammo W/Cad Bilateral CC and MLO view(s) were taken. Prior study comparison: February 29, 2016, bilateral MG 3d screening mammo w/cad. October 12, 2014, bilateral MG screening mammo w CAD. There are scattered fibroglandular densities. 5-6 o'clock anterior focal asymmetry right breast is more defined. ASSESSMENT: Incomplete: need additional imaging evaluation, BI-RAD 0 RECOMMENDATION: Special view mammogram of the right breast. (3D) If lesion persists on supplemental views, image directed ultrasound is recommended. [facility] will attempt to contact patient to return for supplemental views and ultrasound if indicated.
== END | disposition home or self-care (01) ==
LOC: RADMAMWWP 15:05
PROVIDERS: ATTEND Obstetrics & Gynecology
DX: Z12.31 Encounter for screening mammogram for malignant neoplasm of breast (principal); M85.89 Other specified disorders of bone density and structure, multiple sites; N95.1 Menopausal and female climacteric states
CPT/HCPCS: 77063; 77067; 77080

== ENCOUNTER → 2018-12-08 | Outpatient (CLI) | payer MEDICARE ==
--- NOTE | 2018-12-08 11:24 | MM ---
Reason for exam: additional evaluation requested from abnormal screening. Last mammogram was performed less than 1 month ago. History: Patient is postmenopausal and is nulliparous. Took estrogen for 22 years 1 month beginning at age 41. Physical Findings: Nurse did not find any significant physical abnormalities on exam. MG 3D Work Up W/Cad RT Spot compression CC, spot compression MLO, and ML view(s) were taken of the right breast. Prior study comparison: November 26, 2018, bilateral MG 3d screening mammo w/cad. February 29, 2016, bilateral MG 3d screening mammo w/cad. The breast tissue is heterogeneously dense. This may lower the sensitivity of mammography. There is no discrete abnormality. These results were verbally communicated with the patient and result sheet given to the patient on 12/08/18. ASSESSMENT: Probably benign, BI-RAD 3 RECOMMENDATION: Follow-up diagnostic mammogram of the right breast in 6 months.
== END | disposition home or self-care (01) ==
LOC: RADMAMWWP 10:07
PROVIDERS: ATTEND Obstetrics & Gynecology
DX: R92.8 Other abnormal and inconclusive findings on diagnostic imaging of breast (principal)
CPT/HCPCS: 77065; G0279; 77061

== ENCOUNTER → 2021-04-02 | Outpatient (CLI) | payer MEDICARE ==
--- NOTE | 2021-04-02 09:56 | MM ---
Reason for exam: additional evaluation requested from prior study. Last mammogram was performed 2 years and 4 months ago. History: Patient is postmenopausal and is nulliparous. Took estrogen for 22 years 1 month beginning at age 41. Physical Findings: Nurse did not find any significant physical abnormalities on exam. MG 3D Diag Mammo W/Cad JOSE RAMON Bilateral CC and MLO view(s) were taken. XCCL view(s) were taken of the right breast. Prior study comparison: November 26, 2018, bilateral MG 3d screening mammo w/cad. February 29, 2016, bilateral MG 3d screening mammo w/cad. No significant new findings when compared with previous films. These results were verbally communicated with the patient and result sheet given to the patient on 04/02/21. ASSESSMENT: Benign, BI-RAD 2 RECOMMENDATION: Routine screening mammogram of both breasts in 1 year.
--- NOTE | 2021-04-02 10:59 | BD ---
EXAMINATION TYPE: Axial Bone Density DATE OF EXAM: 04/02/2021 COMPARISON: NONE CLINICAL HISTORY: M85.80 disorder of bone Height: 5 FT 4 1/2 IN Weight: 192 FRAX RISK QUESTIONS: Alcohol (3 or more units per day): NO Family History (Parent hip fracture): NO Glucocorticoids (More than 3mos): NO (Ex: prednisone, prednisolone, methylprednisolone, dexamethasone, and hydrocortisone). History of Fracture in Adulthood: NO Secondary Osteoporosis: 1. Type 1 Diabetes: NO 2. Hyperthyroidism: NO 3. Menopause before 45: YES 4. Malnutrition: NO 5. Chronic liver disease: NO Rheumatoid Arthritis: NO Current Tobacco Use: NO RISK FACTORS HISTORY OF: Surgery to Spine/Hip(right/left)/Wrist (right/left): YES When: 1979 Family History of Osteoporosis: YES Active: YES Diet low in dairy products/other sources of calcium: NO Postmenopausal woman: YES Take estrogen and/or progesterone medications: TOOK HRT FROM AGE [age] Lost more than 2 inches in height since high school: YES Frequent falls: NO Poor Health: YES Hyperparathyroidism: NO Adrenal Insufficiency: NO MEDICATIONS: Additional Medications: LOSARTAN, GABAPENTIN, LEXAPRO, ZETIA, NASO ANA, VIT D, ALLERGY SHOTS Additional History: EXAM MEASUREMENTS: Bone mineral density about the R hip (g/cm2): 0.714 Bone mineral density about the L hip (g/cm2): 0.720 T Score values are as follows: -----R Neck: -2.3 -----L Neck: -2.3 -----R Total: -2.2 -----L Total: -2.2 Bone mineral density has: DECREASED -3.3 % since study of: 2018 Bone mineral density about the L Wrist (g/cm2): 0.546 T Score values are as follows: -----Dist. R+U: -2.2 -----Prox. R+U: -0.8 -----Radius total: -2.1 Bone mineral density has: DECREASED -0.4 % since study of: 2018 IMPRESSION: Osteopenia (T Score between -2.5 and -1). There is slightly increased risk of fracture and the patient may be considered for treatment. Re-Screen 2-5 years. NOTE: T-SCORE=SD OF THE YOUNG ADULT MEAN.
== END | disposition home or self-care (01) ==
LOC: RADMAMWWP 08:54
PROVIDERS: ATTEND Obstetrics & Gynecology
DX: R92.8 Other abnormal and inconclusive findings on diagnostic imaging of breast (principal); M85.88 Other specified disorders of bone density and structure, other site
CPT/HCPCS: 77080; 77066; G0279; 77062

== ENCOUNTER → 2022-04-23 | Outpatient (CLI) | payer MEDICARE ==
--- NOTE | 2022-04-24 19:41 | MM ---
Reason for Exam: Screening (asymptomatic). Last mammogram was performed 1 year(s) and 1 month(s) ago. Patient History: Menarche at age 12. Patient has no children. Hysterectomy at age 37. Postmenopausal. Estrogen, from age 41 until age 60. Risk Values: Zoe 5 year model risk: 1.9%. NCI Lifetime model risk: 3.7%. Prior Study Comparison: 11/26/2018 Bilateral Screening Mammogram, [facility]. 12/08/2018 Right Diagnostic Mammogram, [facility]. 04/02/2021 Bilateral Diagnostic Mammogram, [facility]. Tissue Density: There are scattered fibroglandular densities. Findings: Analyzed By CAD. The centrally located focal asymmetry anterior depth right breast remains unchanged. There is no suspicious group of microcalcifications or new suspicious mass in either breast. Overall Assessment: Benign, BI-RAD 2 Management: Screening Mammogram of both breasts in 1 year. 1. Patient should continue monthly self breast exams. 2. A clinical breast exam by your physician is recommended on an annual basis. 3. This exam should not preclude additional follow-up of suspicious palpable abnormalities. Electronically signed and approved by: Fran Jensen M.D. Radiologist
== END | disposition home or self-care (01) ==
LOC: RADMAMWWP 12:53
PROVIDERS: ATTEND Internal Medicine
DX: Z12.31 Encounter for screening mammogram for malignant neoplasm of breast (principal); Z78.0 Asymptomatic menopausal state
CPT/HCPCS: 77063; 77067

== ENCOUNTER 2022-09-05 11:53 | Observation (INO) | payer MEDICARE ==
--- NOTE | 2022-09-05 12:12 | ED ---
General Adult HPI - General Chief complaint: Weakness Stated complaint: Weakness Time Seen by Provider: 09/05/22 11:54 Source: patient, EMS, RN notes reviewed, old records reviewed ([place] records reviewed) Mode of arrival: EMS Limitations: no limitations - History of Present Illness Initial comments: Patient is a pleasant 77-year-old female presenting to the emergency Department as a transfer from [facility]. Patient has had aggressive dizziness over the past week. Patient states it does feel like he is spinning type sensation, symptoms worsen today. Symptoms are mild resting in bed at this time. Patient was seen and [place] and had evaluation done including CT and CTA. Patient was transferred for neurology evaluation. - Related Data Home Medications Medication Instructions Recorded Confirmed Cholecalciferol (Vitamin D3) 2,000 unit PO DAILY 05/17/18 05/17/18 [Vitamin D3] Escitalopram [Lexapro] 20 mg PO HS 05/17/18 05/17/18 Gabapentin [Neurontin] 400 mg PO BID 05/17/18 05/17/18 Losartan [Cozaar] 50 mg PO HS 05/17/18 05/17/18 Multivitamins, Thera [Multivitamin 1 tab PO DAILY 05/17/18 05/17/18 (formulary)] Omeprazole Magnesium [PriLOSEC OTC] 20 mg PO HS 05/17/18 05/17/18 Triamcinolone Acetonide [Nasacort] 1 spray EA NOSTRIL BID PRN 05/17/18 05/17/18 Allergies Allergy/AdvReac Type Severity Reaction Status Date / Time adhesive tape Allergy Rash/Hives Verified 09/05/22 12:08 erythromycin base Allergy Nausea & Verified 09/05/22 12:08 Vomiting & Diarrhea Iodinated Contrast Media Allergy Rash/Hives Verified 09/05/22 12:08 [Iodinated Contrast- Oral and IV Dye] Penicillins Allergy Rash/Hives Verified 09/05/22 12:08 Sulfa (Sulfonamide Allergy Rash/Hives Verified 09/05/22 12:08 Antibiotics) ENVIRONMENTAL Allergy Dyspnea Uncoded 09/05/22 12:08 Review of Systems ROS Statement: Those systems with pertinent positive or pertinent negative responses have been documented in the HPI. ROS Other: All systems not noted in ROS Statement are negative. Constitutional: Denies: fever Eyes: Denies: eye pain ENT: Denies: ear pain Respiratory: Denies: cough Cardiovascular: Denies: chest pain Neurological: Reports: as per HPI, vertigo. Denies: headache, weakness Past Medical History Past Medical History: Fibromyalgia, GERD/Reflux, Hyperlipidemia, Hypertension Additional Past Medical History / Comment(s): seasonal allergies, past kidney stones, vit d deficiency, anx, had a tdap 2013 History of Any Multi-Drug Resistant Organisms: None Reported Past Surgical History: Appendectomy, Back Surgery, Hysterectomy, Tonsillectomy Additional Past Surgical History / Comment(s): parathyroid removed, rt eye cataract removed-has lens implant. partial hysterectomy,surgury to remove kidney stone -both sides., dental implant lower rt side. Past Anesthesia/Blood Transfusion Reactions: Motion Sickness, Postoperative N ausea & Vomiting (PONV) Additional Past Anesthesia/Blood Transfusion Reaction / Comment(s): pt stated she has never received any blood transfusions. clausterphobia Past Psychological History: No Psychological Hx Reported Past Alcohol Use History: None Reported Past Drug Use History: None Reported - Past Family History Mother Additional Family Medical History / Comment(s): had tb as child/ lived into her 90's Father Family Medical History: Cancer Additional Family Medical History / Comment(s): lymphoma, cardiac valve replacement General Exam Limitations: no limitations General appearance: alert, in no apparent distress Head exam: Present: normocephalic Eye exam: Present: normal appearance, PERRL, EOMI ENT exam: Present: normal oropharynx Neck exam: Present: normal inspection Respiratory exam: Present: normal lung sounds bilaterally Cardiovascular Exam: Present: regular rate, normal rhythm GI/Abdominal exam: Present: soft. Absent: tenderness Extremities exam: Present: normal inspection. Absent: pedal edema, calf tenderness Neurological exam: Present: alert, oriented X3, CN II-XII intact. Absent: motor sensory deficit Expanded Neurological exam: Present: protecting the airway Speech: Present: fluid speech Cranial nerves: EOM's Intact: Normal Sensory exam: Upper Extremity Light Touch: Normal, Lower Extremity Light Touch: Normal Motor strength exam: RUE: 5, LUE: 5, RLE: 5, LLE: 5 Eye Response: (4) open spontaneously Motor Response: (6) obeys commands Verbal Response: (5) oriented Psychiatric exam: Present: normal affect, normal mood Skin exam: Present: normal color Course Vital Signs 09/05/22 11:58 Temperature 98.4 F Pulse Rate 85 Respiratory 16 Rate Blood Pressure 179/85 O2 Sat by Pulse 98 Oximetry Medical Decision Making - Medical Decision Making Was pt. sent in by a medical professional or institution (, ASHLEY, DRILLING CONTRACTOR, urgent care, hospital, or fdc...) When possible be specific @ -Patient was sent from [facility] Did you speak to anyone other than the patient for history (EMS, parent, family, police, friend...)? What history was obtained from this source @ -And did speak with Dr. Oviedo from [facility] who did help provide history including history of ER evaluation there Did you review nursing and triage notes (agree or disagree)? Why? @ -I reviewed and agree with nursing and triage notes Were old charts reviewed (outside hosp., previous admission, EMS record, old EKG, old radiological studies, urgent care reports/EKG's, fdc records)? Report findings @ -Reviewed reports from [facility] including labs and imaging another Differential Diagnosis (chest pain, altered mental status, abdominal pain women, abdominal pain men, vaginal bleeding, weakness, fever, dyspnea, syncope, headache, dizziness, GI bleed, back pain, seizure, CVA, palpatations, mental health)? @ -Differential Dizziness: Benign paroxysmal positional Vertigo, Menieres disease, otitis media, acoustic neuroma, vertebrobasilar insufficiency, cerebellar stroke, encephalitis, hypovolemic, arrhythmia, coronary artery syndrome, anemia, this is not meant to be an all-inclusive list EKG interpreted by me (3pts min.). @ -As above X-rays interpreted by me (1pt min.). @ -None done CT interpreted by me (1pt min.). @ -None done U/S interpreted by me (1pt. min.). @ -None done What testing was considered but not performed or refused? (CT, X-rays, U/S, labs)? Why? @ -None What meds were considered but not given or refused? Why? @ -None Did you discuss the management of the patient with other professionals (professionals i.e. ASHLYE Garcia, DRILLING CONTRACTOR, lab, RT, psych nurse, social worker health services, trial lawyer, teacher, sales promotion officer, employment case manager)? Give summary @ -Case was also discussed with Dr. Charles, who will admit covering for hospital call. Was smoking cessation discussed for >3mins.? @ -No Was critical care preformed (if so, how long)? @ -No Were there social determinants of health that impacted care today? How? (Homelessness, low income, unemployed, alcoholism, drug addiction, transportation, low edu. Level, literacy, decrease access to med. care, senior care, rehab)? @ -No Was there de-escalation of care discussed even if they declined (Discuss DNR or withdrawal of care, Hospice)? DNR status @ -No What co-morbidities impacted this encounter? (DM, HTN, Smoking, COPD, CAD, Cancer, CVA, ARF, Chemo, Hep., AIDS, mental health diagnosis, sleep apnea, morbid obesity)? @ -None Was patient admitted / discharged? Hospital course, mention meds given and route, prescriptions, significant lab abnormalities, going to OR and other pertinent info. @ -Chart was reviewed. Patient is updated on plan. Patient will be admitted with neurology consult. Undiagnosed new problem with uncertain prognosis? @ -No Drug Therapy requiring intensive monitoring for toxicity (Heparin, Nitro, Insulin, Cardizem)? @ -No Were any procedures done? @ -No Diagnosis/symptom? @ -Vertigo Acute, or Chronic, or Acute on Chronic? @ -Acute Uncomplicated (without systemic symptoms) or Complicated (systemic symptoms)? @ -default Side effects of treatment? @ -No Exacerbation, Progression, or Severe Exacerbation? @ -No Poses a threat to life or bodily function? How? (Chest pain, [place], [place], pneumonia, PE, COPD, DKA, ARF, appy, cholecystitis, CVA, Diverticulitis, Homicidal, Suicidal, threat to staff... and all critical care pts) @ -No Disposition Clinical Impression: Vertigo Disposition: ADMITTED IP TO THIS HOSP Is patient prescribed a controlled substance at d/c from ED?: No Referrals: None,Stated [Primary Care Provider] - 1-2 days Time of Disposition: 13:02
[2022-09-05] MEDS ORDERED: NALOXONE 0.4 MG/ML 1 ML VIAL IV PRN (13:03)
[2022-09-05] MEDS ORDERED: METOCLOPRAMIDE 5 MG/ML 2 ML VIAL IVP PRN (13:05)
[2022-09-05] MEDS ORDERED: MECLIZINE 25 MG TAB PO PRN (13:06)
--- NOTE | 2022-09-05 16:56 | P.HPIM ---
History of Present Illness H&P Date: 09/05/22 Patient is a 77-year-old female with history of hypertension, dyslipidemia, depression presenting with vertigo from an outside hospital. Her symptoms have been persistent for 1 week, worsening today. Earlier during the week, most of her vertigo was positional. However, today she felt that he was on the entire time. At the moment she is not having any vertiginous symptoms while resting in bed. Patient had CT head and CTA head and neck, which showed no acute process, did show hypoplastic right A1 segment. Laboratory workup was unremarkable at outside hospital. Patient sent to this hospital for neurology evaluation. In the ED, blood pressure was 179/85, pulse 85, respiratory rate 16, saturating at 98% on room air, temperature 98.4. Neurology consulted. MRI brain pending. Pertinent positives and negatives as discussed in HPI, a complete review of systems was performed and all other systems are negative. Patient seen and examined at bedside. Vital signs reviewed General: nontoxic, no distress, appears at stated age Derm: warm, dry Head: atraumatic, normocephalic, symmetric Eyes: EOMI, no lid lag, anicteric sclera, pupils equal round reactive to light ENT: Nose and ears atraumatic Neck: No thyromegaly, supple Mouth: no lip lesion, mucus membranes moist Cardiovascular: S1S2 reg, no murmur, no edema Lungs: clear to auscultation bilateral, no rhonchi, no rales, no wheeze, no accessory muscle use Abdominal: soft, nontender to palpation, no guarding, no appreciable organomegaly Ext: no gross muscle atrophy, muscle strength muscle strength 5 out of 5 in all 4 extremities, no contractures Neuro: CN II-XII grossly intact, no vertical or rotational nystagmus Psych: Alert, oriented, appropriate affect Assessment/Plan: Active: Acute/subacute persistent Vertigo Hypertension -Initially vertigo was positional, however was more persistent today -Need to rule out central causes for vertigo -MRI of brain pending -Neurology consulted -Fall precautions, neuro checks -B12, TSH, lipid panel and a1c ordered -Patient is currently hypertensive, okay to maintain permissive hypertension for now Chronic: Dyslipidemia Neuropathic pain GERD Depression The patient is admitted with an anticipated less than 2 midnight stay as observation status for evaluation of vertigo. Surrogate decision-maker: Spouse CODE STATUS: Full code DVT prophylaxis: Subcu heparin Anticipated discharge date: Pending Clinical course Anticipated discharge place: Pending clinical course A total of 55 minutes was spent on the care of this complex patient more than 50% of the time was spent in counseling and care coordination. Past Medical History Past Medical History: Fibromyalgia, GERD/Reflux, Hyperlipidemia, Hypertension Additional Past Medical History / Comment(s): seasonal allergies, past kidney stones, vit d deficiency, anx, had a tdap 2013 History of Any Multi-Drug Resistant Organisms: None Reported Past Surgical History: Appendectomy, Back Surgery, Hysterectomy, Tonsillectomy Additional Past Surgical History / Comment(s): parathyroid removed, rt eye cataract removed-has lens implant. partial hysterectomy,surgury to remove kidney stone -both sides., dental implant lower rt side. Past Anesthesia/Blood Transfusion Reactions: Motion Sickness, Postoperative Nausea & Vomiting (PONV) Additional Past Anesthesia/Blood Transfusion Reaction / Comment(s): pt stated she has never received any blood transfusions. clausterphobia Past Psychological History: No Psychological Hx Reported Past Alcohol Use History: None Reported Past Drug Use History: None Reported - Past Family History Mother Additional Family Medical History / Comment(s): had tb as child/ lived into her 90's Father Family Medical History: Cancer Additional Family Medical History / Comment(s): lymphoma, cardiac valve replacement Medications and Allergies Home Medications Medication Instructions Recorded Confirmed Type Escitalopram [Lexapro] 20 mg PO HS 05/17/18 09/05/22 History Gabapentin [Neurontin] 400 mg PO BID 05/17/18 09/05/22 History Losartan [Cozaar] 100 mg PO HS 05/17/18 09/05/22 History Multivitamins, Thera [Multivitamin 1 tab PO DAILY 05/17/18 09/05/22 History (formulary)] Omeprazole Magnesium [PriLOSEC OTC] 20 mg PO HS 05/17/18 09/05/22 History Triamcinolone Acetonide [Nasacort] 1 spray EA NOSTRIL BID PRN 05/17/18 09/05/22 History Cholecalciferol [Vitamin D3 (25 50 mcg PO DAILY 09/05/22 09/05/22 History Mcg = 1000 Iu)] Ezetimibe [Zetia] 10 mg PO HS 09/05/22 09/05/22 History Allergies Allergy/AdvReac Type Severity Reaction Status Date / Time adhesive tape Allergy Rash/Hives Verified 09/05/22 13:06 erythromycin base Allergy Nausea & Verified 09/05/22 13:06 Vomiting & Diarrhea Iodinated Contrast Media Allergy Rash/Hives Verified 09/05/22 13:06 [Iodinated Contrast- Oral and IV Dye] Penicillins Allergy Rash/Hives Verified 09/05/22 13:06 Sulfa (Sulfonamide Allergy Rash/Hives Verified 09/05/22 13:06 Antibiotics) ENVIRONMENTAL Allergy Dyspnea Uncoded 09/05/22 13:06 Physical Exam Vitals: Vital Signs Temp Pulse Resp BP Pulse Ox 09/05/22 14:57 98.8 F 93 18 177/76 97 09/05/22 11:58 98.4 F 85 16 179/85 98 Intake and Output 09/05/22 09/05/22 09/05/22 06:59 14:59 22:59 Other: Weight 81.193 kg
[2022-09-05] MEDS ORDERED: ACETAMINOPHEN TAB 325 MG TAB PO PRN (18:09)
[2022-09-05] MEDS ORDERED: EZETIMIBE 10 MG TAB PO SCH (21:00)
[2022-09-05] MEDS ORDERED: PANTOPRAZOLE 40 MG TABLET PO SCH (21:00)
[2022-09-05] MEDS ORDERED: ESCITALOPRAM 20 MG TAB PO SCH (21:00)
[2022-09-05] MEDS ORDERED: LOSARTAN 50 MG TAB PO SCH (21:00)
[2022-09-05] MEDS: GABAPENTIN 400 MG CAP PO SCH (21:31)
[2022-09-06] MEDS: GABAPENTIN 400 MG CAP PO SCH (08:16)
[2022-09-06 08:51] VITALS: RESP 16
[2022-09-06 10:29] LABS: Chol/HDL Ratio 4.04 Ratio; LDL Cholesterol,Calculated 139.6 mg/dL (0.0-131.0); VLDL Calculation 14.58 mg/dL (5.00-40.00)
[2022-09-06 11:24] LABS: Basophils % (A) 0 %; Eosinophils % (A) 0 %; HCT 39.1 % (34.0-46.0); HGB 12.7 gm/dL (11.4-16.0); Lymphocytes # (A) 1.4 k/uL (1.0-4.8); Lymphocytes % (A) 14 %; MCHC 32.6 g/dL (31.0-37.0); MCV 91.9 fL (80.0-100.0); Mean Platelet Volume 7.7; Monocytes # (A) 0.7 k/uL (0-1.0); Monocytes % (A) 7 %; Neutrophils # (A) 7.3 k/uL (1.3-7.7); Neutrophils % (A) 76 %; Platelet Count 209 k/uL (150-450); RBC 4.25 m/uL (3.80-5.40); RDW 13.9 % (11.5-15.5); WBC 9.5 k/uL (3.8-10.6)
[2022-09-06 11:33] LABS: African American GFR (CKD) 62 (>60 ml/min/1.73 sqM); Anion Gap 8 mmol/L; Blood Urea Nitrogen 24 mg/dL (7-17); Calcium 8.9 mg/dL (8.4-10.2); Carbon Dioxide 25 mmol/L (22-30); Chloride 105 mmol/L (98-107); Glucose 101 mg/dL (74-99); Magnesium 2.2 mg/dL (1.6-2.3); Non-African American GFR(CKD) 54 (>60 ml/min/1.73 sqM); Potassium 3.9 mmol/L (3.5-5.1); Sodium 138 mmol/L (137-145)
--- NOTE | 2022-09-06 12:58 | MR ---
EXAMINATION TYPE: MR brain wo con DATE OF EXAM: 09/06/2022 COMPARISON: Outside CT brain from yesterday HISTORY: vertigo, leg weakness, thought process gets mixed up TECHNIQUE: Multiplanar, multisequence imaging of the brain and brainstem is performed without IV cont rast. FINDINGS: Diffusion weighted images demonstrate no evidence of a recent infarct or other diffusion abnormality. There is mild ventricular and sulcal prominence. There are multifocal and confluent areas of T2 hyper intensity seen throughout the white matter bilaterally. Involvement in the geovanna is present. Midline structures demonstrate normal morphology. The craniocervical junction appears within normal limits. Normal vascular flow voids are present. The visualized sinuses are clear and the globes are i ntact. IMPRESSION: 1. No MRI evidence for a recent infarct. 2. There is mild diffuse cerebral atrophy and moderate to advanced nonspecific white matter changes f avor product of chronic small vessel ischemic change in patient of this age.
[2022-09-06] MEDS ORDERED: CYANOCOBALAMIN 1,000 MCG/ML 1 ML VIAL IM ONE (13:30)
--- NOTE | 2022-09-06 13:35 | P.CNNES ---
History of Present Illness Consult date: 09/06/22 Requesting physician: Kory Catalan Reason for Consult: vertigo History of Present Illness: This is a 77-year-old woman who presented emergency department from outside hospital because of the dizziness. She stated that she's been feeling dizzy for the past 1 week and she feels this mostly with position or when she is getting up and she feels as if the room is spinning. But the last couple days she felt as if it's a tornado and got really worse and she felt recently the dizziness was with resting and with position. She has some ringing in her bilateral ears appear denies any hearing loss, focal weakness, numbness, difficulty getting her words out or swallowing. Today she feels much better compared to initial pre sentation. She felt better after being on meclizine. She denies of any recent fevers or sickness. Denies history of stroke or TIA. Some of the workup during his hospital visit consisted of: TSH is 1.390 Vital B12 is 297 she is concerned very low-normal normal supposed to be between 209 44. MR the brain is reported as no MRI evidence for recent infarct. There is mild diffuse cerebral atrophy and moderate to advanced nonspecific white matter changes fever product of chronic small vessel ischemic change and patient of this age. I personally reviewed the MRI and agree there is no acute subacute ischemia. The patient has a chronic white matter changes also seen chronic white matter changes in the medial bilateral pontine region. Review of Systems Review of system: The 12 point system was reviewed and apparent positive and negative per HPI. Past Medical History Past Medical History: Fibromyalgia, GERD/Reflux, Hyperlipidemia, Hypertension Additional Past Medical History / Comment(s): seasonal allergies, past kidney stones, vit d deficiency, anx, had a tdap 2013 History of Any Multi-Drug Resistant Organisms: None Reported Past Surgical History: Appendectomy, Back Surgery, Hysterectomy, Tonsillectomy Additional Past Surgical History / Comment(s): parathyroid removed, rt eye cataract removed-has lens implant. partial hysterectomy,surgury to remove kidney stone -both sides., dental implant lower rt side. Past Anesthesia/Blood Transfusion Reactions: Motion Sickness, Postoperative Nausea & Vomiting (PONV) Additional Past Anesthesia/Blood Transfusion Reaction / Comment(s): pt stated she has never received any blood transfusions. clausterphobia Past Psychological History: No Psychological Hx Reported Past Alcohol Use History: None Reported Past Drug Use History: None Reported - Past Family History Mother Additional Family Medical History / Comment(s): had tb as child/ lived into her 90's Father Family Medical History: Cancer Additional Family Medical History / Comment(s): lymphoma, cardiac valve replacement Medications and Allergies Home Medications Medication Instructions Recorded Confirmed Type Escitalopram [Lexapro] 20 mg PO HS 05/17/18 09/05/22 History Gabapentin [Neurontin] 400 mg PO BID 05/17/18 09/05/22 History Losartan [Cozaar] 100 mg PO HS 05/17/18 09/05/22 History Multivitamins, Thera [Multivitamin 1 tab PO DAILY 05/17/18 09/05/22 History (formulary)] Omeprazole Magnesium [PriLOSEC OTC] 20 mg PO HS 05/17/18 09/05/22 History Triamcinolone Acetonide [Nasacort] 1 spray EA NOSTRIL BID PRN 05/17/18 09/05/22 History Cholecalciferol [Vitamin D3 (25 50 mcg PO DAILY 09/05/22 09/05/22 History Mcg = 1000 Iu)] Ezetimibe [Zetia] 10 mg PO HS 09/05/22 09/05/22 History Allergies Allergy/AdvReac Type Severity Reaction Status Date / Time adhesive tape Allergy Rash/Hives Verified 09/05/22 13:06 erythromycin base Allergy Nausea & Verified 09/05/22 13:06 Vomiting & Diarrhea Iodinated Contrast Media Allergy Rash/Hives Verified 09/05/22 13:06 [Iodinated Contrast- Oral and IV Dye] Penicillins Allergy Rash/Hives Verified 09/05/22 13:06 Sulfa (Sulfonamide Allergy Rash/Hives Verified 09/05/22 13:06 Antibiotics) ENVIRONMENTAL Allergy Dyspnea Uncoded 09/05/22 13:06 Physical Examination - Vital Signs Vital Signs: Vital Signs Temp Pulse Pulse Resp BP BP BP 09/06/22 07:00 98.2 F 75 16 145/68 09/06/22 02:00 98.7 F 71 14 138/63 09/05/22 20:00 98.3 F 75 18 164/72 09/05/22 16:05 98.1 F 87 18 166/75 09/05/22 15:50 81 18 152/66 09/05/22 14:57 98.8 F 93 18 177/76 Pulse Ox 09/06/22 07:00 98 09/06/22 02:00 98 09/05/22 20:00 95 09/05/22 16:05 96 09/05/22 15:50 94 L 09/05/22 14:57 97 Intake and Output 09/05/22 09/06/22 09/06/22 22:59 06:59 14:59 Intake Total 118 118 Balance 118 118 Intake: Oral 118 118 Other: # Voids 1 2 Weight 81.193 kg GENERAL: The patient is lying in bed and is not in acute distress. NEUROLOGICAL: Higher mental function: The patient is awake, alert, oriented to self, place and time. Patient is following commands. No aphasia and no neglect. Cranial nerves: The pupils are round, equal and reactive to light and accommodation. Visual bangura are full to confrontation throughout. Extraocular movement is intact no nystagmus is noted. Facial sensation is normal to touch throughout. The facial strength is normal throughout. Hearing is normal bilaterally to hand rub. Tongue is midline and moved [id number] without any difficulty. No dysarthria is noted. Shoulder shrug is normal bilaterally. Motor: Gait is normal. The strength is 5 over 5 throughout. Normal tone and bulk. Cerebellum: Normal finger to nose bilaterally. Sensation: Sensation is normal to touch throughout. Reflexes (right/left): 2+ throughout. Plantars are downgoing bilaterally. Results - Laboratory Findings CBC and BMP: 09/06/22 11:08 09/06/22 11:08 Abnormal Lab Findings: Abnormal Labs 09/06/22 09/06/22 06:25 11:08 BUN 24 H Glucose 101 H Cholesterol 205.00 H LDL Cholesterol, Calc 139.6 H Assessment and Plan Assessment: Acute vertigo and appears more positional/peripheral--improved. MRI Brain is negative for acute or subacute ischemia Very low normal vitamin B12 Plan: Because of very low normal vitamin B-12 I ordered vitamin B12 1000 g IM once then after that by mouth. Continue meclizine. Patient is doing drastically better compared to initial presentation and she's feeling better. We'll defer the rest of the medical management to the primary team Otherwise no additional neurological workup needed. Thank you for the consultation. Time with Patient: Greater than 30
--- NOTE | 2022-09-06 13:55 | P.PN ---
Subjective Progress Note Date: 09/06/22 Discharge Diagnosis: Positional Vertigo Low normal B12 Hypertension Hospital Course: 77-year-old female with history of hypertension, dyslipidemia, depression presenting with vertigo. In the ED, blood pressure was 179/85, pulse 85, respiratory rate 16, saturating at 98% on room air, temperature 98.4. Neurology consulted. MRI brain did not show any acute infarct. Patient's symptoms have improved. Being discharged home, with close follow-up with neurology. Patient seen and examined at bedside. Vital signs reviewed and stable. General: nontoxic, no distress, appears at stated age Derm: warm, dry Head: atraumatic, normocephalic, symmetric Eyes: EOMI, no lid lag, anicteric sclera, pupils equal round reactive to light ENT: Nose and ears atraumatic Neck: No thyromegaly, supple Mouth: no lip lesion, mucus membranes moist Cardiovascular: S1S2 reg, no murmur, no edema Lungs: clear to auscultation bilateral, no rhonchi, no rales, no wheeze, no accessory muscle use Abdominal: soft, nontender to palpation, no guarding, no appreciable organomegaly Ext: no gross muscle atrophy, muscle strength muscle strength 5 out of 5 in all 4 extremities, no contractures Neuro: CN II-XII grossly intact, no vertical or rotational nystagmus Psych: Alert, oriented, appropriate affect A total of 33 minutes of time were spent preparing this complex discharge summary. Patient was discharged on 09/06/22 1350. Objective - Vital Signs Vital signs: Vital Signs Temp 98.2 F 09/06/22 07:00 Pulse 75 09/06/22 07:00 Resp 16 09/06/22 07:00 BP 145/68 09/06/22 07:00 Pulse Ox 98 09/06/22 07:00 FiO2 Intake & Output 09/05/22 09/06/22 09/06/22 18:59 06:59 18:59 Intake Total 118 118 Balance 118 118 Weight 81.193 kg Intake: Oral 118 118 Other: # Voids 2 - Labs CBC & Chem 7: 09/06/22 11:08 09/06/22 11:08 Labs: Abnormal Lab Results - Last 24 Hours (Table) 09/06/22 09/06/22 Range/Units 06:25 11:08 BUN 24 H (7-17) mg/dL Glucose 101 H (74-99) mg/dL Cholesterol 205.00 H (0.00-200.00) mg/dL LDL Cholesterol, Calc 139.6 H (0.0-131.0) mg/dL
[2022-09-06 15:25] VITALS: BP 146/68; PULSE 70; TEMP 97.5
[2022-09-07] MEDS ORDERED: CYANOCOBALAMIN 500 MCG TAB PO SCH (09:00)
== END 2022-09-06 16:32 | disposition home or self-care (01) ==
LOC: EC 11:53 → 6NMEDSUR 13:06
PROVIDERS: ADMIT Student in an Organized Health Care Education/Training Program; ATTEND Student in an Organized Health Care Education/Training Program
DX: R42 Dizziness and giddiness (principal); I10 Essential (primary) hypertension; E78.5 Hyperlipidemia, unspecified; F32.A Depression, unspecified; M79.2 Neuralgia and neuritis, unspecified; K21.9 Gastro-esophageal reflux disease without esophagitis; M79.7 Fibromyalgia; J30.2 Other seasonal allergic rhinitis; Z87.442 Personal history of urinary calculi; E55.9 Vitamin D deficiency, unspecified; Z90.710 Acquired absence of both cervix and uterus; Z90.49 Acquired absence of other specified parts of digestive tract; Z98.890 Other specified postprocedural states; Z98.41 Cataract extraction status, right eye; Z96.1 Presence of intraocular lens; F40.240 Claustrophobia; Z80.7 Family history of other malignant neoplasms of lymphoid, hematopoietic and related tissues; Z82.49 Family history of ischemic heart disease and other diseases of the circulatory system; Z79.899 Other long term (current) drug therapy; Z88.1 Allergy status to other antibiotic agents; Z88.0 Allergy status to penicillin; Z88.2 Allergy status to sulfonamides; Z91.048 Other nonmedicinal substance allergy status
CPT/HCPCS: 96374; 99285; 80061; 80048; 84443; 82607; 83735; 85025; 83036; 70551; G0378 ×2; J3420

== ENCOUNTER → 2023-03-31 | Outpatient (CLI) | payer MEDICARE ==
[2023-03-31 15:18] LABS: Basophils # (A) 0.05 X 10*3/uL (0.00-0.10); Eosinophils # (A) 0.21 X 10*3/uL (0.04-0.35); Eosinophils % (A) 4.3 %; HCT 41.2 % (37.2-50.0); HGB 13.2 g/dL (12.0-17.0); Lymphocytes # (A) 1.19 X 10*3/uL (0.90-5.00); Lymphocytes % (A) 24.3 %; MCH 30.1 pg (27.0-32.0); MCV 94.1 FL (80.0-97.0); Mean Platelet Volume 9.9 FL (9.5-12.2); Monocytes % (A) 8.2 %; NRBC Per 100 WBC 0 X 10*3/uL (0.00-0.01); Neutrophils # (A) 3.03 X 10*3/uL (1.80-7.70); Platelet Count 263 X 10*3/uL (140-440); RBC 4.38 X 10*6/uL (4.10-5.60); RDW 14.1 % (11.5-14.5); WBC 4.89 X 10*3/uL (4.50-10.00)
[2023-03-31 15:54] LABS: ALT 12 U/L (8-49); AST 19 U/L (13-35); Albumin 4.1 g/dL (3.8-4.9); Albumin/Globulin Ratio 1.71 Ratio (1.60-3.17); Alkaline Phosphatase 136 U/L (41-126); Blood Urea Nitrogen 15.5 mg/dL (9.0-27.0); Calcium 9.9 mg/dL (8.7-10.3); Carbon Dioxide 27.6 mmol/L (21.6-31.8); Chloride 106 mmol/L (96-109); Chol/HDL Ratio 3.82 Ratio; Globulin 2.4 g/dL (1.6-3.3); Glucose 90 mg/dL (70-110); LDL Cholesterol,Calculated 136.7 mg/dL (0.0-131.0); Potassium 4.8 mmol/L (3.5-5.5); Sodium 143 mmol/L (135-145); T4, Free (Free Thyroxine) 1.03 ng/dL (0.80-1.80); Total Bilirubin 0.4 mg/dL (0.3-1.2); Total Protein 6.5 g/dL (6.2-8.2)
== END | disposition home or self-care (01) ==
LOC: LABWHC1 10:07
PROVIDERS: ATTEND Internal Medicine
DX: E78.5 Hyperlipidemia, unspecified (principal); E55.9 Vitamin D deficiency, unspecified
CPT/HCPCS: 36415; 80053; 80061; 82306; 83036; 84439; 84443; 85025

== ENCOUNTER → 2023-07-14 | Outpatient (CLI) | payer MEDICARE ==
--- NOTE | 2023-07-14 14:05 | BD ---
EXAMINATION TYPE: Axial Bone Density DATE OF EXAM: 07/14/2023 CLINICAL HISTORY: 78 years old Female. ICD-10 CODE: M85.88 OT DISRD OF BONE DENSITY Height: 64 Weight: 200.5 FRAX RISK QUESTIONS: Alcohol (3 or more units per day): no Family History (Parent hip fracture): no Glucocorticoids (More than 3mos): no (Ex: prednisone, prednisolone, methylprednisolone, dexamethasone, and hydrocortisone). History of Fracture in Adulthood: no Secondary Osteoporosis: 1. Type 1 Diabetes: no 2. Hyperthyroidism: no 3. Menopause before 45: yes 4. Malnutrition: no 5. Chronic liver disease: no Rheumatoid Arthritis: no Current Tobacco Use: no RISK FACTORS HISTORY OF: Surgery to Spine/Hip(right/left)/Wrist (right/left): yes EXAM MEASUREMENTS: Bone mineral densitometry was performed using the [employer] System. Bone mineral density about the R hip (g/cm2): 0.701 Bone mineral density about the L hip (g/cm2): 0.709 T Score values are as follows: -----R Neck: -2.2 -----L Neck: -2.5 -----R Total: -2.4 -----L Total: -2.4 Z Score values are as follows: -----R Neck: -0.7 -----L Neck: -1.0 -----R Total: -1.1 -----L Total: -1.0 Bone mineral density has: decreased -4.0 % since study of: 04.02.2021 Bone mineral density about the L Wrist (g/cm2): 0.519 T Score values are as follows: -----Dist. R+U: -2.8 -----Prox. R+U: -1.2 -----Radius total: -2.6 Z Score values are as follows: -----Dist. R+U: -0.2 -----Prox. R+U: 1.4 -----Radius total: 0.1 Bone mineral density has: decreased -4.9 % since study of: 04.02.2021 FRAX%s: The graph provided illustrates a 18.1% chance for a major osteoporotic fx and a 6.1% chance f or the hips probability for fx in 10 years time. IMPRESSION: Osteoporosis (T Score less than -2.5). There is increased fracture risk and therapy is usually indicated based on age. Re-Screen 1-2 years. NOTE: T-SCORE=SD OF THE YOUNG ADULT MEAN.
--- NOTE | 2023-07-16 12:57 | MM ---
Reason for Exam: Screening (asymptomatic). Last mammogram was performed 1 year(s) and 3 month(s) ago. Patient History: Menarche at age 12. Patient has no children. Hysterectomy at age 37. Postmenopausal. Estrogen, from age 41 until age 60. Risk Values: Zoe 5 year model risk: 1.9%. NCI Lifetime model risk: 3.1%. Prior Study Comparison: 12/08/2018 Right Diagnostic Mammogram, [facility]. 04/02/2021 Bilateral Diagnostic Mammogram, [facility]. 04/23/2022 Bilateral MG 3D screening mammo w/cad, [facility]. Tissue Density: The breasts are heterogeneously dense, which may obscure small masses. Findings: Analyzed By CAD. There is no suspicious group of microcalcifications or new suspicious mass in either breast. Overall Assessment: Benign, BI-RAD 2 Management: Screening Mammogram of both breasts in 1 year. . Patient should continue monthly self-breast exams. A clinical breast exam by your physician is recommended on an annual basis. This exam should not preclude additional follow-up of suspicious palpable abnormalities. Note on Zoe scores and lifetime risk: 1. A Oze score greater than 3% is considered moderate risk. If this is the case, consider specialist referral to assess eligibility for a risk reducing agent. 2. If overall lifetime risk for the development of breast cancer is 20% or higher, the patient may qualify for future screening with alternating mammogram and breast MRI. Electronically signed and approved by: Julian Gunter M.D. Radiologis
== END | disposition home or self-care (01) ==
LOC: RADMAMWWP 13:03
PROVIDERS: ATTEND Internal Medicine
DX: Z12.31 Encounter for screening mammogram for malignant neoplasm of breast (principal); M85.89 Other specified disorders of bone density and structure, multiple sites; M81.0 Age-related osteoporosis without current pathological fracture; Z78.0 Asymptomatic menopausal state
CPT/HCPCS: 77063; 77067; 77080

== ENCOUNTER → 2024-03-15 | Outpatient (CLI) | payer MEDICARE ==
[2024-03-15 14:51] LABS: Basophils # (A) 0.04 X 10*3/uL (0.00-0.10); Basophils % (A) 0.7 %; Eosinophils # (A) 0.15 X 10*3/uL (0.04-0.35); Eosinophils % (A) 2.7 %; HGB 13.6 g/dL (12.0-17.0); Lymphocytes # (A) 1.39 X 10*3/uL (0.90-5.00); Lymphocytes % (A) 25.4 %; MCH 29.8 pg (27.0-32.0); MCHC 31.6 g/dL (32.0-37.0); MCV 94.3 FL (80.0-97.0); Mean Platelet Volume 10.2 FL (9.5-12.2); Monocytes # (A) 0.41 X 10*3/uL (0.20-1.00); Monocytes % (A) 7.5 %; NRBC Per 100 WBC 0 X 10*3/uL (0.00-0.01); Neutrophils # (A) 3.47 X 10*3/uL (1.80-7.70); Neutrophils % (A) 63.3 %; Platelet Count 237 X 10*3/uL (140-440); RBC 4.56 X 10*6/uL (4.10-5.60); RDW 13.4 % (11.5-14.5); WBC 5.48 X 10*3/uL (4.50-10.00)
[2024-03-15 15:36] LABS: ALT 13 U/L (8-49); AST 22 U/L (13-35); Albumin 4.2 g/dL (3.8-4.9); Albumin/Globulin Ratio 1.83 Ratio (1.60-3.17); Alkaline Phosphatase 155 U/L (41-126); BUN/Creat Ratio 14.55 Ratio (12.00-20.00); Calcium 9.6 mg/dL (8.7-10.3); Carbon Dioxide 25.5 mmol/L (21.6-31.8); Chloride 106 mmol/L (96-109); Globulin 2.3 g/dL (1.6-3.3); Glucose 97 mg/dL (70-110); LDL Cholesterol,Calculated 124.5 mg/dL (0.0-131.0); Potassium 4.9 mmol/L (3.5-5.5); Sodium 143 mmol/L (135-145); T4, Free (Free Thyroxine) 1.09 ng/dL (0.80-1.80); Total Bilirubin 0.4 mg/dL (0.3-1.2); Total Protein 6.5 g/dL (6.2-8.2)
== END | disposition home or self-care (01) ==
LOC: LABWHC1 09:47
PROVIDERS: ATTEND Internal Medicine
DX: I10 Essential (primary) hypertension (principal); E78.5 Hyperlipidemia, unspecified
CPT/HCPCS: 36415; 80053; 80061; 82306; 82607; 83036; 84439; 84443; 85025